=== PATIENT | female | born 1960 | race Caucasian/White ===

== ENCOUNTER → 2016-04-11 | Outpatient (CLI) | payer OTHER ==
[~2016-04-11] MED LIST: ASCO25TA PO; CHLO25TA PO; LEVO100T5 PO; LORA10TA2 PO; LOSA50TA20 PO; SUPE1TAB PO; VITA200015 PO; [UNRECOGNIZED DRUG - CODE] PO; albuterol inh INH
--- NOTE | 2016-04-11 17:30 | REP ---
LUMBAR SPINE, FIVE VIEWS: HISTORY: Left sciatica. There is no acute fracture or subluxation. The L3-4 through L5-S1 intervertebral discs are decreased in height consistent with disc degeneration. Osteophytes are present on L3 and L4. There is narrowing of the L4-5 and L5-S1 facet joints. IMPRESSION: Degenerative change as described above. Signed by Beni Vergara MD 04/12/2016 08:28 A
== END ==
LOC: M LRY 14:37
PROVIDERS: ATTEND Physician Assistant
DX: M51.36 Other intervertebral disc degeneration, lumbar region (principal); M51.37 Other intervertebral disc degeneration, lumbosacral region; M25.78 Osteophyte, vertebrae

== ENCOUNTER → 2016-04-19 | Outpatient (CLI) | payer OTHER ==
--- NOTE | 2016-04-19 15:45 | REP ---
LUMBAR SPINE, FIVE VIEWS: HISTORY: Lumbago. COMPARISON: 04/11/2016 There is no acute fracture or subluxation. The L3-4 through L5-S1 intervertebral discs are decreased in height consistent with disc degeneration. Osteophytes are present on L3 and L4. There is narrowing of the L4-5 and L5-S1 facet joints. IMPRESSION: Degenerative change as described above. Signed by Beni Vergara MD 04/19/2016 04:05 P
== END ==
LOC: M RAD 14:45
PROVIDERS: ATTEND Physician Assistant
DX: M54.42 Lumbago with sciatica, left side (principal); M51.36 Other intervertebral disc degeneration, lumbar region; M51.37 Other intervertebral disc degeneration, lumbosacral region

== ENCOUNTER → 2016-04-27 | Outpatient (CLI) | payer OTHER ==
--- NOTE | 2016-04-27 19:17 | REP ---
MRI LUMBAR SPINE WITHOUT CONTRAST: HISTORY: Back pain. Decreased signal intensity on T2-weighted images is present in the L3-4 and L4-5 intervertebral discs. The discs are decreased in height. These findings are consistent with disc degeneration. There is no disc bulge or herniation at the L1-2, L2-3 and L5-S1 levels. There is hypertrophy of the posterior articulating facets. The nerves exit the neural foramina without compression. A diffuse disc bulge is present at the L3-4 level. There is hypertrophy of the ligamenta flava and posterior articulating facets. These findings produce minimal central canal stenosis. The L3 nerves exit the neural foramina without compression. A diffuse disc bulge is present at the L4-5 level. There is hypertrophy of the ligamenta flava and posterior articulating facets. These findings produce mild central canal stenosis. The L4 nerves exit the neural foramina without compression. The conus medullaris is normal in appearance terminating at the level of the T12-L1 intervertebral disc. Normal signal intensity is present in the lumbar vertebral bodies. IMPRESSION: 1. Minimal central canal stenosis at the L4-5 level secondary to disc bulge, ligamentous and facet hypertrophy. 2. Mild central canal stenosis at the L4-5 level secondary to disc bulge, ligamentous and facet hypertrophy. Signed by Beni Vergara MD 04/27/2016 07:19 P
== END ==
LOC: M RAD 16:54
DX: M99.53 Intervertebral disc stenosis of neural canal of lumbar region (principal); M89.38 Hypertrophy of bone, other site; M24.28 Disorder of ligament, vertebrae; M17.12 Unilateral primary osteoarthritis, left knee

== ENCOUNTER → 2016-05-02 | Outpatient (CLI) | payer OTHER ==
--- NOTE | 2016-05-03 02:17 | REP ---
Clinical: Pain. Technique: AP, lateral, bilateral oblique and sunrise views of the left knee. Findings: Early moderate tricompartmental osteoarthritic degenerative changes include medial and patellar osteophytes along with increased sclerosis to the medial tibial surface with decreased medial and patellofemoral compartment joint space. No acute fracture or dislocation. No definite effusion. Impression: Early moderate tricompartmental degenerative changes suggested. Signed by Atif Santillan MD 05/03/2016 02:08 A
== END ==
LOC: M RAD 10:52
PROVIDERS: ATTEND Hospitalist
DX: M17.12 Unilateral primary osteoarthritis, left knee (principal)

== ENCOUNTER → 2016-05-08 | Outpatient (CLI) | payer OTHER ==
--- NOTE | 2016-05-08 13:59 | REP ---
Left TIB-fib series: Four views. History: Pain in the left leg. Swelling. Findings: Four views left tibia and fibula show no evidence of fracture or subluxation. There is an edema pattern in the subcutaneous fat layer. Soft tissues are otherwise unremarkable. Impression: Subcutaneous edema pattern. No bony abnormality. Signed by Ricardo Ashby MD 05/08/2016 02:35 P
== END ==
LOC: M RAD 13:05
PROVIDERS: ATTEND Hospitalist
DX: R60.0 Localized edema (principal)

== ENCOUNTER → 2016-06-02 | Outpatient (REF) | payer OTHER | LOC: M SFHCPLAZ 15:31 | DX: Z53.8 Procedure and treatment not carried out for other reasons (principal) ==

== ENCOUNTER → 2016-06-08 | Outpatient (CLI) | payer OTHER | LOC: M LAB 07:01 | PROVIDERS: ATTEND Internal Medicine | DX: M79.605 Pain in left leg (principal) ==

== ENCOUNTER 2016-06-15 14:30 | Outpatient (RCR) | payer OTHER | END 2016-06-30 | LOC: M PT 14:30 | PROVIDERS: ATTEND Hospitalist | DX: Z51.89 Encounter for other specified aftercare (principal); M25.562 Pain in left knee; M54.5 Low back pain ==

== ENCOUNTER → 2016-07-12 | Outpatient (CLI) | payer OTHER ==
[2016-07-12 10:08] LABS: ANION GAP 10 MEQ/L (8-16); BLOOD UREA NITROGEN 16 MG/DL (7-18); CALCIUM LEVEL 8.9 MG/DL (8.5-10.1); CARBON DIOXIDE LEVEL 29 MEQ/L (21-32); CHLORIDE LEVEL 102 MEQ/L (98-107); CREATININE FOR GFR 0.76 MG/DL (0.55-1.02); GLOMERULAR FILTRATION RATE > 60.0 (>51); GLUCOSE, FASTING 105 MG/DL (70-105); POTASSIUM SERUM 4.1 MEQ/L (3.5-5.1); SODIUM LEVEL 141 MEQ/L (136-145)
== END ==
LOC: M LAB 08:19
PROVIDERS: ATTEND Neuromusculoskeletal Medicine & OMM
DX: I10 Essential (primary) hypertension (principal); E03.9 Hypothyroidism, unspecified

== ENCOUNTER → 2016-07-12 | Outpatient (CLI) | payer OTHER ==
[2016-07-12 07:47] LABS: BASO % 0.5 % (0.0-1.0); EOS # 0.1 K/mm3 (0.0-0.50); EOS % 2.8 % (0.0-3.0); LARGE UNSTAINED CELL # 0.1 K/mm3 (0.0-0.4); LARGE UNSTAINED CELL % 1.7 % (0.0-4.0); LYMPH # 1.6 K/mm3 (1.5-4.5); LYMPH % 33.8 % (24.0-44.0); MEAN CORPUSCULAR HGB CONC 33.3 g/dl (32.0-36.5); MEAN CORPUSCULAR VOLUME 93.3 fl (80.0-96.0); MONO # 0.3 K/mm3 (0.0-0.8); MONO % 5.9 % (0.0-5.0); NEUTROPHILS # 2.5 K/mm3 (1.8-7.7); NEUTROPHILS % 55.3 % (36.0-66.0); PLATELET COUNT, AUTOMATED 205 k/mm3 (150-450); RED CELL DISTRIBUTION WIDTH 12.7 % (11.5-14.5); WHITE BLOOD COUNT 4.5 K/mm3 (4.0-10.0)
[2016-07-12 08:53] LABS: ERYTHROCYTE SEDIMENTATION RATE 14 mm/hr (0-30)
== END ==
LOC: M LAB 06:53
PROVIDERS: ATTEND Physician Assistant
DX: M17.0 Bilateral primary osteoarthritis of knee (principal)

== ENCOUNTER → 2016-09-07 | Outpatient (REF) | payer OTHER | LOC: M SFHCWAGY 15:36 | PROVIDERS: ATTEND Nurse Practitioner Family | DX: Z01.419 Encounter for gynecological examination (general) (routine) without abnormal findings (principal); R85.612 Low grade squamous intraepithelial lesion on cytologic smear of anus (LGSIL); Z11.51 Encounter for screening for human papillomavirus (HPV) ==

== ENCOUNTER → 2016-09-07 | Outpatient (CLI) | payer OTHER ==
--- NOTE | 2016-09-07 16:15 | REPMRS ---
Patient History The patient states she had a clinical breast exam in 08/2016. Patient is postmenopausal. No known family history of cancer. Digital Woman Screen Mammo: September 07, 2016 - Exam #: [id number] Bilateral CC and MLO view(s) were taken. Technologist: Shagufta Melendez Technologist Prior study comparison: September 07, 2015, digital woman screen mammo performed at [facility]. September 28, 2014, digital woman screen mammo performed at [facility]. August 13, 2013, digital woman screen mammo performed at [facility]. FINDINGS: The breast tissue is almost entirely fat. There has been no change in the appearance of the mammogram from the prior studies. There is no interval development of dominant mass, architectural distortion, or clustered microcalcification typical of malignancy. ASSESSMENT: BI-RADS/ACR category 1 mammogram. Negative. Recommendation Routine screening mammogram of both breasts in 1 year (for women over age 40). This mammogram was interpreted with the aid of an FDA-approved computer-aided dectection system. Electronically Signed By: Fabián Ashby MD 09/07/16 [id number]
== END ==
LOC: M WHC 15:09
PROVIDERS: ATTEND Nurse Practitioner Family
DX: Z12.31 Encounter for screening mammogram for malignant neoplasm of breast (principal); Z78.0 Asymptomatic menopausal state; E65 Localized adiposity

== ENCOUNTER → 2016-09-15 | Outpatient (CLI) | payer OTHER ==
--- NOTE | 2016-09-15 17:44 | REP ---
PELVIC ULTRASOUND: Real-time sonographic evaluation of the pelvis is performed utilizing transabdominal and endovaginal technique. The bladder measures 6.0 x 8.0 x 8.1 cm. The uterus measures 9.4 x 4.5 x 6.0 cm. The endometrium is diffusely heterogeneous with tiny scattered cystic areas. Thickness is 24 mm. This is markedly thickened. There is no endometrial fluid collection. Ovaries could not be visualized. I see no evidence of adnexal mass or free fluid. IMPRESSION: Markedly thickened heterogeneous endometrium, could indicate endometrial hyperplasia or neoplasm. Recommend endometrial sampling. No evidence of adnexal mass or free fluid.
== END ==
LOC: M WHC 12:49
PROVIDERS: ATTEND Nurse Practitioner Family
DX: N94.89 Other specified conditions associated with female genital organs and menstrual cycle (principal)

== ENCOUNTER → 2016-11-02 | Outpatient (REF) | payer OTHER ==
[~2016-11-02] MED LIST changes: +DOXY-278 PO; +ELIQ5TAB PO; +GABA-279 PO; +MAGN400C2 PO; +POTA20PW PO; +SPIR50TA2 PO
== END ==
LOC: M SFHCPLAZ 14:27
DX: Z11.59 Encounter for screening for other viral diseases (principal)

== ENCOUNTER 2016-12-22 08:48 | Day surgery (SDC) | payer OTHER ==
[~2016-12-22] VITALS: Ht 165.1 cm; Wt 117.9 kg
[~2016-12-22 08:48] MED LIST changes: -DOXY-278 PO
[2016-12-22] MEDS ORDERED: LIDOCAINE 1% MDV 20ML VIAL SQ ONE (09:15)
[2016-12-22] MEDS ORDERED: LR 1,000 ML IV ONE (09:15)
[2016-12-22 09:26] LABS: MEAN CORPUSCULAR HEMOGLOBIN 31.5 pg (27.0-33.0); MEAN CORPUSCULAR HGB CONC 34.2 g/dl (32.0-36.5); MEAN CORPUSCULAR VOLUME 92.2 fl (80.0-96.0); RED CELL DISTRIBUTION WIDTH 12.7 % (11.5-14.5); WHITE BLOOD COUNT 5.2 K/mm3 (4.0-10.0)
[2016-12-22] MEDS ORDERED: DOXY-278 PO (10:36)
[2016-12-22] MEDS ORDERED: MIDAZOLAM INJ 2 MG/2 ML VIAL (J2250) As Ordered ONE (11:03)
[2016-12-22] MEDS ORDERED: PROPOFOL 200 MG/20 ML VIAL As Ordered ONE (11:03)
[2016-12-22] MEDS ORDERED: LIDOCAINE 2% INJ 100 MG/5 ML SDV (FOR ANES.) As Ordered ONE (11:03)
[2016-12-22] MEDS ORDERED: ONDANSETRON 4MG/2ML VIAL (J2405) As Ordered ONE (11:03)
[2016-12-22] MEDS ORDERED: fentaNYL 100 MCG/2 ML INJECTION (J3010) As Ordered ONE ×2 (11:03→12:04)
[2016-12-22] MEDS: fentaNYL 100 MCG/2 ML INJECTION (J3010) IV PRN ×4 (12:05→12:23)
[2016-12-22] MEDS ORDERED: PERCOCET 5MG/325MG TAB As Ordered ONE (12:18)
--- NOTE | 2016-12-22 12:35 | RO ---
DATE OF PROCEDURE: 12/22/2016 PREOPERATIVE DIAGNOSES: 1. Postmenopausal bleeding. 2. Thickened endometrium. POSTOPERATIVE DIAGNOSES: 1. Postmenopausal bleeding. 2. Thickened endometrium. PROCEDURE PERFORMED: Hysteroscopy, dilatation and curettage with MyoSure. SURGEON: Cammie Edmondson MD TRAIN GATE ATTENDANT: Bartolo Rowe, [facility] III ANESTHESIA: General via laryngeal mask airway. SPECIMENS: Endometrial sampling and endometrial curettings. OPERATIVE FINDINGS: Patient with the uterus sounded to 9 cm. Thickened endometrium. On hysteroscopy, bilateral ostia were visualized. ESTIMATED BLOOD LOSS: 10 mL. INTRAVENOUS FLUIDS: 500 mL. DESCRIPTION OF OPERATION: After informed consent was obtained and written consent was reviewed, the patient was brought to the operating room where laryngeal mask airway anesthesia was obtained. She was then placed in lithotomy position, was prepped and draped in a normal sterile fashion. A time out in the operating room was then performed identifying the patient, procedure to be performed as well as drug allergies. A bivalve speculum was then placed revealing the cervix. The anterior lip of the cervix was grasped with a single tooth tenaculum. The cervix was then sequentially dilated using Hanks dilators. The hysteroscope was then advanced through the cervical os and the endometrium was surveyed with the above noted findings. Next, the MyoSure device was then advanced through the hysteroscope and several thickened areas in the endometrium were directly sampled using the MyoSure device. The hysteroscope was then removed. A sharp curette was then advanced through the cervical os and the uterus was curetted in a 360 degree fashion. Specimen was obtained, collected and sent to pathology for further evaluation. The single tooth tenaculum was then removed. Tenaculum sites were noted to be hemostatic. The speculum was then removed. The patient was then taken out of lithotomy position, was awakened from general anesthesia and taken to recovery in stable condition. Counts were correct. MTDD
[2016-12-22] MEDS ORDERED: LR 1,000 ML IV SCH (12:45)
[2016-12-22] MEDS ORDERED: ONDANSETRON 4MG/2ML VIAL (J2405) IV PRN (12:45)
[2016-12-22] MEDS ORDERED: PERCOCET 5MG/325MG TAB PO PRN ×2 (12:45)
[2016-12-22 13:20] VITALS: BP 131/68
== END 2016-12-22 13:26 | disposition home or self-care (01) ==
LOC: M SDC 08:48
PROVIDERS: ATTEND Obstetrics & Gynecology
DX: N95.0 Postmenopausal bleeding (principal); R93.8 Abnormal findings on diagnostic imaging of other specified body structures; E03.9 Hypothyroidism, unspecified; I10 Essential (primary) hypertension; I48.0 Paroxysmal atrial fibrillation; L71.9 Rosacea, unspecified; M17.0 Bilateral primary osteoarthritis of knee; M16.0 Bilateral primary osteoarthritis of hip; J45.909 Unspecified asthma, uncomplicated; G47.33 Obstructive sleep apnea (adult) (pediatric); E66.01 Morbid (severe) obesity due to excess calories; Z88.0 Allergy status to penicillin; Z88.1 Allergy status to other antibiotic agents; Z88.6 Allergy status to analgesic agent; Z88.8 Allergy status to other drugs, medicaments and biological substances; Z91.040 Latex allergy status; Z79.899 Other long term (current) drug therapy; Z98.51 Tubal ligation status

== ENCOUNTER → 2017-04-20 | Outpatient (CLI) | payer OTHER ==
[2017-04-20 18:12] LABS: BASO % 0.7 % (0.0-1.0); EOS # 0.4 10^3/uL (0.0-0.50); EOS % 6.1 % (0.0-3.0); HEMATOCRIT 44.9 % (36.0-47.0); HEMOGLOBIN 14.8 g/dl (12.0-16.0); IMMATURE GRANULOCYTE % 0.3 % (0-0); LYMPH % 32.6 % (24.0-44.0); MEAN CORPUSCULAR HEMOGLOBIN 30.1 pg (27.0-33.0); MEAN CORPUSCULAR VOLUME 91.4 fl (80.0-96.0); MONO # 0.6 10^3/uL (0.0-0.8); MONO % 9.1 % (0.0-5.0); NEUTROPHILS # 3.1 10^3/uL (1.8-7.7); NEUTROPHILS % 51.2 % (36.0-66.0); PLATELET COUNT, AUTOMATED 259 10^3/uL (150-450); RED BLOOD COUNT 4.91 10^6/uL (4.00-5.40); RED CELL DISTRIBUTION WIDTH 12.5 % (11.5-14.5)
== END ==
LOC: M LAB 17:38
DX: M43.6 Torticollis (principal)
CPT/HCPCS: 85025

== ENCOUNTER → 2017-05-24 | Outpatient (CLI) | payer OTHER ==
[2017-05-24 14:47] LABS: ANION GAP 6 MEQ/L (8-16); BLOOD UREA NITROGEN 16 MG/DL (7-18); CALCIUM LEVEL 8.8 MG/DL (8.5-10.1); CARBON DIOXIDE LEVEL 33 MEQ/L (21-32); CHLORIDE LEVEL 101 MEQ/L (98-107); CREATININE FOR GFR 0.79 MG/DL (0.55-1.30); GLOMERULAR FILTRATION RATE > 60.0 (>51); GLUCOSE, FASTING 104 MG/DL (70-100); POTASSIUM SERUM 3.8 MEQ/L (3.5-5.1); SODIUM LEVEL 140 MEQ/L (136-145)
== END ==
LOC: M LAB 13:39
DX: I10 Essential (primary) hypertension (principal); E03.9 Hypothyroidism, unspecified
CPT/HCPCS: 84443

== ENCOUNTER → 2017-09-14 | Outpatient (REF) | payer OTHER ==
[2017-09-18 14:16] LABS: HPV HYBRID CAPTURE II Negative (Negative)
== END ==
LOC: M LAB REF 18:09
DX: Z12.4 Encounter for screening for malignant neoplasm of cervix (principal)

== ENCOUNTER 2017-10-07 22:14 | Emergency (ER) | payer OTHER ==
[2017-10-08] MEDS: AZITHROMYCIN 250 MG TAB PO (00:37)
== END 2017-10-08 00:41 | disposition home or self-care (01) ==
LOC: M ED 22:14
DX: H66.93 Otitis media, unspecified, bilateral (principal); R05 Cough; I10 Essential (primary) hypertension; J45.909 Unspecified asthma, uncomplicated; E03.9 Hypothyroidism, unspecified; Z87.891 Personal history of nicotine dependence; Z79.899 Other long term (current) drug therapy; Z88.0 Allergy status to penicillin; Z88.6 Allergy status to analgesic agent; Z88.8 Allergy status to other drugs, medicaments and biological substances; Z91.040 Latex allergy status
CPT/HCPCS: 71046

== ENCOUNTER → 2017-12-07 | Outpatient (CLI) | payer OTHER ==
[2017-12-07 18:46] LABS: ANION GAP 10 MEQ/L (8-16); BLOOD UREA NITROGEN 12 MG/DL (7-18); CARBON DIOXIDE LEVEL 29 MEQ/L (21-32); CHLORIDE LEVEL 99 MEQ/L (98-107); CREATININE FOR GFR 0.83 MG/DL (0.55-1.30); GLOMERULAR FILTRATION RATE > 60.0 (>51); GLUCOSE, FASTING 79 MG/DL (70-100); POTASSIUM SERUM 3.4 MEQ/L (3.5-5.1); SODIUM LEVEL 138 MEQ/L (136-145)
== END ==
LOC: M LAB 16:44
DX: I10 Essential (primary) hypertension (principal)
CPT/HCPCS: 80048

== ENCOUNTER 2017-12-18 11:13 | Inpatient (IN) | payer OTHER ==
[2017-12-18 12:08] LABS: BASO % 0.2 % (0.0-1.0); EOS # 0.1 10^3/uL (0.0-0.50); EOS % 1.2 % (0.0-3.0); HEMATOCRIT 45.7 % (36.0-47.0); IMMATURE GRANULOCYTE % 0.4 % (0-3.0); LYMPH # 1.9 10^3/uL (1.5-4.5); LYMPH % 18.3 % (24.0-44.0); MEAN CORPUSCULAR HEMOGLOBIN 30.3 pg (27.0-33.0); MEAN CORPUSCULAR HGB CONC 32.8 g/dl (32.0-36.5); MEAN CORPUSCULAR VOLUME 92.3 fl (80.0-96.0); MONO # 0.7 10^3/uL (0.0-0.8); MONO % 6.2 % (0.0-5.0); NEUTROPHILS # 7.7 10^3/uL (1.8-7.7); NEUTROPHILS % 73.7 % (36.0-66.0); PLATELET COUNT, AUTOMATED 243 10^3/uL (150-450); RED BLOOD COUNT 4.95 10^6/uL (4.00-5.40); RED CELL DISTRIBUTION WIDTH 13.2 % (11.5-14.5); WHITE BLOOD COUNT 10.5 10^3/uL (4.0-10.0)
[2017-12-18] MEDS: dexameTHASONE 20 MG/5 ML VIAL (J1100) IV (12:18)
[2017-12-18] MEDS: IPRATROPIUM 0.5MG/ALBUTEROL 2.5MG INH SOL UD 3ML (DUONEB)(J7620) NEB ×5 (12:28→22:56)
[2017-12-18 12:33] LABS: ANION GAP 8 MEQ/L (8-16); BLOOD UREA NITROGEN 11 MG/DL (7-18); CALCIUM LEVEL 9.6 MG/DL (8.5-10.1); CARBON DIOXIDE LEVEL 31 MEQ/L (21-32); CHLORIDE LEVEL 97 MEQ/L (98-107); CREATININE FOR GFR 0.73 MG/DL (0.55-1.30); GLOMERULAR FILTRATION RATE > 60.0 (>51); GLUCOSE, FASTING 90 MG/DL (70-100); POTASSIUM SERUM 3.8 MEQ/L (3.5-5.1); SODIUM LEVEL 136 MEQ/L (136-145)
[2017-12-18] MEDS: ONDANSETRON 4MG/2ML VIAL (J2405) IV (14:49)
[2017-12-18 16:58] LABS: CK-MB VALUE MASS < 1.0 NG/ML (<3.6); CPK CREATINE PHOSPHOKINASE 91 U/L (26-192); TROPONIN I < 0.02 NG/ML (< 0.10)
[2017-12-18] MEDS: LevoFLOXacin IV 500 MG in APPROPRIATE DILUENT 1 EA IV (17:32)
[2017-12-18] MEDS: APIXABAN 5 MG TAB (ELIQUIS) PO (20:54)
[2017-12-18] MEDS: methylPREDNISolone INJ 125 MG/2 ML VIAL (J2930) IV (20:54)
[2017-12-18] MEDS: GABAPENTIN 100 MG CAP PO (20:54)
[2017-12-18] MEDS: guaiFENesin ER 600 MG TAB PO (20:54)
[2017-12-18] MEDS: POTASSIUM CHLORIDE 10 MEQ SR TABLET PO (22:22)
[2017-12-18 23:41] LABS: CK-MB VALUE MASS < 1.0 NG/ML (<3.6); CPK CREATINE PHOSPHOKINASE 89 U/L (26-192); MB/CK RELATIVE INDEX 1.12 (< OR =4); TROPONIN I < 0.02 NG/ML (< 0.10)
[2017-12-19] MEDS: ALBUTEROL SULFATE 2.5 MG/0.5 ML INH NEB SOLN INH (02:12)
[2017-12-19] MEDS: IPRATROPIUM 0.5MG/ALBUTEROL 2.5MG INH SOL UD 3ML (DUONEB)(J7620) NEB ×4 (03:31→20:27)
[2017-12-19] MEDS: methylPREDNISolone INJ 125 MG/2 ML VIAL (J2930) IV ×2 (04:05→12:42)
[2017-12-19] MEDS: LEVOTHYROXINE 100MCG TABLET (0.1MG) PO (06:07)
[2017-12-19] MEDS: guaiFENesin ER 600 MG TAB PO ×2 (07:48→20:07)
[2017-12-19] MEDS: APIXABAN 5 MG TAB (ELIQUIS) PO ×2 (07:48→20:07)
[2017-12-19] MEDS: SPIRONOLACTONE 50 MG TAB PO (07:48)
[2017-12-19] MEDS: GABAPENTIN 100 MG CAP PO ×2 (07:48→20:07)
[2017-12-19] MEDS: CHLORTHALIDONE 25 MG TAB PO (07:49)
[2017-12-19] MEDS: LORATADINE 10 MG TAB PO (07:49)
[2017-12-19 08:11] LABS: BASO % 0.1 % (0.0-1.0); HEMATOCRIT 41.7 % (36.0-47.0); IMMATURE GRANULOCYTE % 0.4 % (0-3.0); LYMPH # 1.4 10^3/uL (1.5-4.5); LYMPH % 10.4 % (24.0-44.0); MEAN CORPUSCULAR HEMOGLOBIN 30.2 pg (27.0-33.0); MEAN CORPUSCULAR HGB CONC 33.6 g/dl (32.0-36.5); MEAN CORPUSCULAR VOLUME 89.9 fl (80.0-96.0); MONO # 0.2 10^3/uL (0.0-0.8); MONO % 1.4 % (0.0-5.0); NEUTROPHILS # 12.2 10^3/uL (1.8-7.7); NEUTROPHILS % 87.7 % (36.0-66.0); PLATELET COUNT, AUTOMATED 238 10^3/uL (150-450); RED BLOOD COUNT 4.64 10^6/uL (4.00-5.40); RED CELL DISTRIBUTION WIDTH 13.3 % (11.5-14.5); WHITE BLOOD COUNT 13.9 10^3/uL (4.0-10.0)
[2017-12-19 08:58] LABS: ANION GAP 14 MEQ/L (8-16); BLOOD UREA NITROGEN 18 MG/DL (7-18); CALCIUM LEVEL 9.3 MG/DL (8.5-10.1); CARBON DIOXIDE LEVEL 23 MEQ/L (21-32); CHLORIDE LEVEL 98 MEQ/L (98-107); CPK CREATINE PHOSPHOKINASE 119 U/L (26-192); CREATININE FOR GFR 1.13 MG/DL (0.55-1.30); GLOMERULAR FILTRATION RATE 52.5 (>51); GLUCOSE, FASTING 207 MG/DL (70-100); MB/CK RELATIVE INDEX 1.09 (< OR =4); POTASSIUM SERUM 3.8 MEQ/L (3.5-5.1); SODIUM LEVEL 135 MEQ/L (136-145); TROPONIN I < 0.02 NG/ML (< 0.10)
[2017-12-19] MEDS: ACETAMINOPHEN TAB 650MG DOSE (2X325MG) PO (10:58)
[2017-12-19] MEDS: ONDANSETRON 4 MG TAB (S0181) PO ×2 (13:22→22:39)
[2017-12-19] MEDS: SLF 3 ML SYR IV ×2 (13:27→20:07)
[2017-12-19] MEDS: LevoFLOXacin IV 500 MG in APPROPRIATE DILUENT 1 EA IV (16:06)
[2017-12-19] MEDS: methylPREDNISolone INJ 40 MG/1 ML VIAL (J2920) IV (20:06)
[2017-12-19] MEDS: POTASSIUM CHLORIDE 10 MEQ SR TABLET PO (20:07)
[2017-12-20] MEDS: IPRATROPIUM 0.5MG/ALBUTEROL 2.5MG INH SOL UD 3ML (DUONEB)(J7620) NEB ×6 (04:00→20:00)
[2017-12-20] MEDS: methylPREDNISolone INJ 40 MG/1 ML VIAL (J2920) IV ×3 (04:09→21:06)
[2017-12-20] MEDS: LEVOTHYROXINE 100MCG TABLET (0.1MG) PO (06:00)
[2017-12-20] MEDS: SLF 3 ML SYR IV ×4 (06:01→21:08)
[2017-12-20 06:08] LABS: BASO % 0.1 % (0.0-1.0); HEMATOCRIT 40.6 % (36.0-47.0); HEMOGLOBIN 13.7 g/dl (12.0-15.5); IMMATURE GRANULOCYTE % 0.7 % (0-3.0); LYMPH # 1.5 10^3/uL (1.5-4.5); LYMPH % 7.1 % (24.0-44.0); MEAN CORPUSCULAR HEMOGLOBIN 30.4 pg (27.0-33.0); MEAN CORPUSCULAR HGB CONC 33.7 g/dl (32.0-36.5); MONO # 0.6 10^3/uL (0.0-0.8); MONO % 3.1 % (0.0-5.0); NEUTROPHILS # 18.3 10^3/uL (1.8-7.7); PLATELET COUNT, AUTOMATED 270 10^3/uL (150-450); RED BLOOD COUNT 4.51 10^6/uL (4.00-5.40); RED CELL DISTRIBUTION WIDTH 13.5 % (11.5-14.5); WHITE BLOOD COUNT 20.5 10^3/uL (4.0-10.0)
[2017-12-20 06:21] LABS: ANION GAP 10 MEQ/L (8-16); BLOOD UREA NITROGEN 23 MG/DL (7-18); CALCIUM LEVEL 9.3 MG/DL (8.5-10.1); CARBON DIOXIDE LEVEL 25 MEQ/L (21-32); CHLORIDE LEVEL 102 MEQ/L (98-107); CREATININE FOR GFR 0.94 MG/DL (0.55-1.30); GLOMERULAR FILTRATION RATE > 60.0 (>51); GLUCOSE, FASTING 196 MG/DL (70-100); MAGNESIUM LEVEL 2.3 MG/DL (1.8-2.4); POTASSIUM SERUM 4.7 MEQ/L (3.5-5.1); SODIUM LEVEL 137 MEQ/L (136-145)
[2017-12-20] MEDS: SPIRONOLACTONE 50 MG TAB PO (07:59)
[2017-12-20] MEDS: GABAPENTIN 100 MG CAP PO ×2 (07:59→21:07)
[2017-12-20] MEDS: APIXABAN 5 MG TAB (ELIQUIS) PO ×2 (07:59→21:07)
[2017-12-20] MEDS: LORATADINE 10 MG TAB PO (08:00)
[2017-12-20] MEDS: guaiFENesin ER 600 MG TAB PO ×2 (08:00→21:06)
[2017-12-20] MEDS: CHLORTHALIDONE 25 MG TAB PO (08:00)
[2017-12-20] MEDS: METOPROLOL TART 12.5 MG PER 1/2 TAB PO ×2 (08:45→12:41)
[2017-12-20] MEDS: VITAMIN D 1,000 INTERNATIONAL UNITS TABLET PO (11:54)
[2017-12-20] MEDS: METOPROLOL 5 MG/5 ML VIAL IV ×2 (11:54→18:36)
[2017-12-20] MEDS: FAMOTIDINE 20 MG TAB PO (12:39)
[2017-12-20] MEDS: METOPROLOL TART 25 MG TABLET PO (17:08)
[2017-12-20] MEDS: POTASSIUM CHLORIDE 10 MEQ SR TABLET PO (21:06)
[2017-12-20] MEDS: MAGNESIUM OXIDE 400 MG TAB (MAG-OX) PO (21:08)
[2017-12-21] MEDS: METOPROLOL TART 25 MG TABLET PO ×2 (00:08→05:02)
[2017-12-21] MEDS: IPRATROPIUM 0.5MG/ALBUTEROL 2.5MG INH SOL UD 3ML (DUONEB)(J7620) NEB ×4 (04:00→11:16)
[2017-12-21] MEDS: methylPREDNISolone INJ 40 MG/1 ML VIAL (J2920) IV (04:40)
[2017-12-21] MEDS: LEVOTHYROXINE 100MCG TABLET (0.1MG) PO (05:01)
[2017-12-21] MEDS: FAMOTIDINE 20 MG TAB PO (05:01)
[2017-12-21] MEDS: SLF 3 ML SYR IV ×3 (05:02→22:00)
[2017-12-21 05:56] LABS: BASO % 0.1 % (0.0-1.0); HEMATOCRIT 41.2 % (36.0-47.0); HEMOGLOBIN 13.6 g/dl (12.0-15.5); IMMATURE GRANULOCYTE % 1.3 % (0-3.0); LYMPH # 1.2 10^3/uL (1.5-4.5); LYMPH % 6.9 % (24.0-44.0); MEAN CORPUSCULAR HEMOGLOBIN 30.4 pg (27.0-33.0); MONO # 0.9 10^3/uL (0.0-0.8); MONO % 5.3 % (0.0-5.0); NEUTROPHILS # 14.9 10^3/uL (1.8-7.7); NEUTROPHILS % 86.4 % (36.0-66.0); PLATELET COUNT, AUTOMATED 281 10^3/uL (150-450); RED BLOOD COUNT 4.48 10^6/uL (4.00-5.40); RED CELL DISTRIBUTION WIDTH 13.7 % (11.5-14.5); WHITE BLOOD COUNT 17.3 10^3/uL (4.0-10.0)
[2017-12-21 06:10] LABS: ANION GAP 7 MEQ/L (8-16); BLOOD UREA NITROGEN 22 MG/DL (7-18); CALCIUM LEVEL 8.6 MG/DL (8.5-10.1); CARBON DIOXIDE LEVEL 26 MEQ/L (21-32); CHLORIDE LEVEL 104 MEQ/L (98-107); GLOMERULAR FILTRATION RATE > 60.0 (>51); GLUCOSE, FASTING 183 MG/DL (70-100); MAGNESIUM LEVEL 2.2 MG/DL (1.8-2.4); POTASSIUM SERUM 4.3 MEQ/L (3.5-5.1); SODIUM LEVEL 137 MEQ/L (136-145)
[2017-12-21] MEDS: VITAMIN D 1,000 INTERNATIONAL UNITS TABLET PO (08:37)
[2017-12-21] MEDS: CHLORTHALIDONE 25 MG TAB PO (08:37)
[2017-12-21] MEDS: LORATADINE 10 MG TAB PO (08:37)
[2017-12-21] MEDS: SPIRONOLACTONE 50 MG TAB PO (08:37)
[2017-12-21] MEDS: GABAPENTIN 100 MG CAP PO ×2 (08:37→22:05)
[2017-12-21] MEDS: APIXABAN 5 MG TAB (ELIQUIS) PO ×2 (08:38→22:06)
[2017-12-21] MEDS: guaiFENesin ER 600 MG TAB PO ×2 (08:38→22:04)
[2017-12-21] MEDS: METOPROLOL TART 50 MG TAB PO ×2 (12:17→17:26)
[2017-12-21] MEDS: ACETAMINOPHEN TAB 650MG DOSE (2X325MG) PO (17:24)
[2017-12-21] MEDS: POTASSIUM CHLORIDE 10 MEQ SR TABLET PO (22:05)
[2017-12-21] MEDS: MAGNESIUM OXIDE 400 MG TAB (MAG-OX) PO (22:06)
[2017-12-22] MEDS: METOPROLOL TART 50 MG TAB PO ×3 (00:06→08:41)
[2017-12-22 05:31] LABS: BASO % 0.1 % (0.0-1.0); HEMATOCRIT 43.9 % (36.0-47.0); HEMOGLOBIN 14.6 g/dl (12.0-15.5); IMMATURE GRANULOCYTE % 2.6 % (0-3.0); LYMPH # 3.3 10^3/uL (1.5-4.5); LYMPH % 22.8 % (24.0-44.0); MEAN CORPUSCULAR HEMOGLOBIN 29.9 pg (27.0-33.0); MEAN CORPUSCULAR HGB CONC 33.3 g/dl (32.0-36.5); MONO % 7.2 % (0.0-5.0); NEUTROPHILS # 9.6 10^3/uL (1.8-7.7); NEUTROPHILS % 67.3 % (36.0-66.0); PLATELET COUNT, AUTOMATED 276 10^3/uL (150-450); RED BLOOD COUNT 4.88 10^6/uL (4.00-5.40); RED CELL DISTRIBUTION WIDTH 13.4 % (11.5-14.5); WHITE BLOOD COUNT 14.2 10^3/uL (4.0-10.0)
[2017-12-22 05:58] LABS: ANION GAP 8 MEQ/L (8-16); BLOOD UREA NITROGEN 25 MG/DL (7-18); CALCIUM LEVEL 8.7 MG/DL (8.5-10.1); CARBON DIOXIDE LEVEL 29 MEQ/L (21-32); CHLORIDE LEVEL 104 MEQ/L (98-107); CREATININE FOR GFR 0.77 MG/DL (0.55-1.30); GLOMERULAR FILTRATION RATE > 60.0 (>51); GLUCOSE, FASTING 94 MG/DL (70-100); MAGNESIUM LEVEL 2.4 MG/DL (1.8-2.4); POTASSIUM SERUM 3.9 MEQ/L (3.5-5.1); SODIUM LEVEL 141 MEQ/L (136-145)
[2017-12-22] MEDS: LEVOTHYROXINE 100MCG TABLET (0.1MG) PO (06:26)
[2017-12-22] MEDS: SLF 3 ML SYR IV ×3 (06:27→20:40)
[2017-12-22] MEDS: LEVALBUTEROL 1.25 MG/0.5 ML CONCENTRATE NEB INH ×2 (07:22→18:15)
[2017-12-22] MEDS: VITAMIN D 1,000 INTERNATIONAL UNITS TABLET PO (08:40)
[2017-12-22] MEDS: CHLORTHALIDONE 25 MG TAB PO (08:40)
[2017-12-22] MEDS: guaiFENesin ER 600 MG TAB PO ×2 (08:40→20:40)
[2017-12-22] MEDS: APIXABAN 5 MG TAB (ELIQUIS) PO ×2 (08:40→20:39)
[2017-12-22] MEDS: predniSONE 20 MG TAB PO (08:40)
[2017-12-22] MEDS: GABAPENTIN 100 MG CAP PO ×2 (08:41→20:39)
[2017-12-22] MEDS: LORATADINE 10 MG TAB PO (08:41)
[2017-12-22] MEDS: SPIRONOLACTONE 50 MG TAB PO (08:41)
[2017-12-22] MEDS: METOPROLOL 5 MG/5 ML VIAL IV (18:54)
[2017-12-22] MEDS: DIGOXIN INJ 0.5 MG/2 ML AMP (J1160) IV (20:38)
[2017-12-22] MEDS: METOPROLOL TARTRATE 100 MG TAB PO (20:39)
[2017-12-22] MEDS: POTASSIUM CHLORIDE 10 MEQ SR TABLET PO (20:39)
[2017-12-22] MEDS: MAGNESIUM OXIDE 400 MG TAB (MAG-OX) PO (20:40)
[2017-12-22] MEDS: DIGOXIN 0.25 MG TAB PO (23:55)
[2017-12-23] MEDS: LEVOTHYROXINE 100MCG TABLET (0.1MG) PO (05:32)
[2017-12-23] MEDS: SLF 3 ML SYR IV ×3 (05:33→21:34)
[2017-12-23 05:38] LABS: BASO % 0.1 % (0.0-1.0); EOS % 0.3 % (0.0-3.0); HEMATOCRIT 45.9 % (36.0-47.0); HEMOGLOBIN 15.5 g/dl (12.0-15.5); LYMPH # 3.7 10^3/uL (1.5-4.5); LYMPH % 23.5 % (24.0-44.0); MEAN CORPUSCULAR HEMOGLOBIN 30.4 pg (27.0-33.0); MEAN CORPUSCULAR HGB CONC 33.8 g/dl (32.0-36.5); MONO % 6.1 % (0.0-5.0); NEUTROPHILS # 10.6 10^3/uL (1.8-7.7); PLATELET COUNT, AUTOMATED 294 10^3/uL (150-450); RED CELL DISTRIBUTION WIDTH 13.2 % (11.5-14.5); WHITE BLOOD COUNT 15.8 10^3/uL (4.0-10.0)
[2017-12-23 05:53] LABS: ANION GAP 5 MEQ/L (8-16); BLOOD UREA NITROGEN 22 MG/DL (7-18); CALCIUM LEVEL 8.9 MG/DL (8.5-10.1); CARBON DIOXIDE LEVEL 34 MEQ/L (21-32); CHLORIDE LEVEL 101 MEQ/L (98-107); CREATININE FOR GFR 0.88 MG/DL (0.55-1.30); GLOMERULAR FILTRATION RATE > 60.0 (>51); GLUCOSE, FASTING 92 MG/DL (70-100); MAGNESIUM LEVEL 2.5 MG/DL (1.8-2.4); POTASSIUM SERUM 4.6 MEQ/L (3.5-5.1); SODIUM LEVEL 140 MEQ/L (136-145)
[2017-12-23] MEDS: SPIRONOLACTONE 50 MG TAB PO (08:04)
[2017-12-23] MEDS: CHLORTHALIDONE 25 MG TAB PO (08:04)
[2017-12-23] MEDS: VITAMIN D 1,000 INTERNATIONAL UNITS TABLET PO (08:04)
[2017-12-23] MEDS: METOPROLOL TARTRATE 100 MG TAB PO ×2 (08:04→21:34)
[2017-12-23] MEDS: predniSONE 20 MG TAB PO (08:05)
[2017-12-23] MEDS: APIXABAN 5 MG TAB (ELIQUIS) PO ×2 (08:05→21:33)
[2017-12-23] MEDS: LORATADINE 10 MG TAB PO (08:05)
[2017-12-23] MEDS: guaiFENesin ER 600 MG TAB PO ×2 (08:05→21:33)
[2017-12-23] MEDS: GABAPENTIN 100 MG CAP PO ×2 (08:05→21:33)
[2017-12-23] MEDS: DIGOXIN 0.25 MG TAB PO (09:14)
[2017-12-23] MEDS: FLECAINIDE 50MG TABLET PO (11:40)
[2017-12-23] MEDS: MAGNESIUM OXIDE 400 MG TAB (MAG-OX) PO (21:33)
[2017-12-23] MEDS: POTASSIUM CHLORIDE 10 MEQ SR TABLET PO (21:33)
[2017-12-24 05:39] LABS: BASO # 0.1 10^3/uL (0.0-0.2); BASO % 0.3 % (0.0-1.0); EOS # 0.1 10^3/uL (0.0-0.50); EOS % 0.5 % (0.0-3.0); HEMATOCRIT 46.3 % (36.0-47.0); HEMOGLOBIN 15.3 g/dl (12.0-15.5); IMMATURE GRANULOCYTE % 3.2 % (0-3.0); LYMPH % 22.8 % (24.0-44.0); MEAN CORPUSCULAR HEMOGLOBIN 30.2 pg (27.0-33.0); MEAN CORPUSCULAR VOLUME 91.5 fl (80.0-96.0); MONO # 0.8 10^3/uL (0.0-0.8); MONO % 4.7 % (0.0-5.0); NEUTROPHILS % 68.5 % (36.0-66.0); PLATELET COUNT, AUTOMATED 319 10^3/uL (150-450); RED BLOOD COUNT 5.06 10^6/uL (4.00-5.40); RED CELL DISTRIBUTION WIDTH 13.5 % (11.5-14.5); WHITE BLOOD COUNT 17.6 10^3/uL (4.0-10.0)
[2017-12-24] MEDS: SLF 3 ML SYR IV (05:49)
[2017-12-24] MEDS: LEVOTHYROXINE 100MCG TABLET (0.1MG) PO (05:50)
[2017-12-24] MEDS: LEVALBUTEROL 1.25 MG/0.5 ML CONCENTRATE NEB INH (06:18)
[2017-12-24 06:22] LABS: ANION GAP 7 MEQ/L (8-16); BLOOD UREA NITROGEN 26 MG/DL (7-18); CALCIUM LEVEL 8.5 MG/DL (8.5-10.1); CARBON DIOXIDE LEVEL 32 MEQ/L (21-32); CHLORIDE LEVEL 99 MEQ/L (98-107); CREATININE FOR GFR 0.94 MG/DL (0.55-1.30); GLOMERULAR FILTRATION RATE > 60.0 (>51); GLUCOSE, FASTING 103 MG/DL (70-100); MAGNESIUM LEVEL 2.4 MG/DL (1.8-2.4); POTASSIUM SERUM 3.9 MEQ/L (3.5-5.1); SODIUM LEVEL 138 MEQ/L (136-145)
[2017-12-24] MEDS: GABAPENTIN 100 MG CAP PO (08:35)
[2017-12-24] MEDS: predniSONE 20 MG TAB PO (08:35)
[2017-12-24] MEDS: VITAMIN D 1,000 INTERNATIONAL UNITS TABLET PO (08:35)
[2017-12-24] MEDS: LORATADINE 10 MG TAB PO (08:35)
[2017-12-24] MEDS: APIXABAN 5 MG TAB (ELIQUIS) PO (08:35)
[2017-12-24] MEDS: guaiFENesin ER 600 MG TAB PO (08:35)
[2017-12-24] MEDS: CHLORTHALIDONE 25 MG TAB PO (08:37)
[2017-12-24] MEDS: METOPROLOL TARTRATE 100 MG TAB PO (08:37)
[2017-12-24] MEDS: SPIRONOLACTONE 50 MG TAB PO (08:37)
== END 2017-12-24 12:01 | disposition home or self-care (01) | DRG 141 ==
LOC: M ED 11:13 → M ED INP 15:23 → M PCU 17:01
DX: J45.901 Unspecified asthma with (acute) exacerbation (principal); I48.0 Paroxysmal atrial fibrillation; I10 Essential (primary) hypertension; G47.33 Obstructive sleep apnea (adult) (pediatric); E03.9 Hypothyroidism, unspecified; B97.19 Other enterovirus as the cause of diseases classified elsewhere; Z87.891 Personal history of nicotine dependence; Z90.49 Acquired absence of other specified parts of digestive tract; E66.9 Obesity, unspecified; Z79.01 Long term (current) use of anticoagulants; Z79.899 Other long term (current) drug therapy; Z88.0 Allergy status to penicillin; Z88.6 Allergy status to analgesic agent; Z88.8 Allergy status to other drugs, medicaments and biological substances; Z91.040 Latex allergy status

== ENCOUNTER → 2018-01-18 | Outpatient (CLI) | payer OTHER ==
[~2018-01-18] MED LIST changes: -ASCO25TA PO; -CHLO25TA PO; +E-Z-GAS II EFFERVESCENT PACKET (SODIUM BICARB./CITRIC ACID/SIMETHICONE) As Ordered; +E-Z-HD 98% w/w 340GM SUSP BTL As Ordered; +E-Z-PAQUE 96% w/w SUSP 176GM BTL As Ordered; -ELIQ5TAB PO; -GABA-279 PO; -LEVO100T5 PO; -LORA10TA2 PO; -LOSA50TA20 PO; -MAGN400C2 PO; -POTA20PW PO; -SPIR50TA2 PO; -SUPE1TAB PO; -VITA200015 PO; -[UNRECOGNIZED DRUG - CODE] PO; -albuterol inh INH
== END ==
LOC: M RAD 10:01
DX: R12 Heartburn (principal); K21.9 Gastro-esophageal reflux disease without esophagitis
CPT/HCPCS: 74220

== ENCOUNTER → 2018-01-21 | Outpatient (CLI) | payer OTHER ==
[2018-01-21 09:52] LABS: CORTISOL AM 19.9 UG/DL (4.3-22.4)
[2018-01-24 17:43] LABS: DOPAMINE 258 ug/24 hr (0-510); DOPAMINE TOTAL URINE 136 ug/L (Undefined); EPINEPHRINE 4 ug/24 hr (0-20); EPINEPHRINE TOTAL URINE 2 ug/L (Undefined); NOREPINEPHRINE 55 ug/24 hr (0-135); NOREPINEPHRINE TOTAL URINE 29 ug/L (Undefined)
== END ==
LOC: M LAB 06:41
DX: I48.91 Unspecified atrial fibrillation (principal); I10 Essential (primary) hypertension; D35.00 Benign neoplasm of unspecified adrenal gland
CPT/HCPCS: 82384

== ENCOUNTER 2018-03-01 09:01 | Day surgery (SDC) | payer OTHER ==
[2018-03-01] MEDS: NS 1,000 ML IV (07:30)
[~2018-03-01 09:01] MED LIST changes: -E-Z-GAS II EFFERVESCENT PACKET (SODIUM BICARB./CITRIC ACID/SIMETHICONE) As Ordered; -E-Z-HD 98% w/w 340GM SUSP BTL As Ordered; -E-Z-PAQUE 96% w/w SUSP 176GM BTL As Ordered; +LIDOCAINE 2% INJ 100 MG/5 ML SDV (FOR ANES.) As Ordered; +PROPOFOL 200 MG/20 ML VIAL As Ordered
== END 2018-03-01 12:05 | disposition home or self-care (01) ==
LOC: M OPP 09:01
DX: Z12.11 Encounter for screening for malignant neoplasm of colon (principal); D12.0 Benign neoplasm of cecum; D12.5 Benign neoplasm of sigmoid colon; K57.30 Diverticulosis of large intestine without perforation or abscess without bleeding; K64.9 Unspecified hemorrhoids; R13.10 Dysphagia, unspecified; K21.9 Gastro-esophageal reflux disease without esophagitis; I48.91 Unspecified atrial fibrillation; I10 Essential (primary) hypertension; J45.909 Unspecified asthma, uncomplicated; E03.9 Hypothyroidism, unspecified; R12 Heartburn; R06.83 Snoring; M17.0 Bilateral primary osteoarthritis of knee; M16.10 Unilateral primary osteoarthritis, unspecified hip; Z78.0 Asymptomatic menopausal state; Z87.891 Personal history of nicotine dependence; Z90.49 Acquired absence of other specified parts of digestive tract; Z98.890 Other specified postprocedural states; Z79.899 Other long term (current) drug therapy; Z79.01 Long term (current) use of anticoagulants; Z79.890 Hormone replacement therapy; Z88.0 Allergy status to penicillin; Z88.8 Allergy status to other drugs, medicaments and biological substances; Z91.040 Latex allergy status
CPT/HCPCS: 45385

== ENCOUNTER → 2018-04-25 | Outpatient (CLI) | payer OTHER ==
[~2018-04-25] MED LIST changes: +ACET650S3 PO; +ARNU1INH INH; +ASCO25TA PO; +AZIT-12 PO; +CHLO25TA PO; +DOXY-350 PO; +ELIQ5TAB PO; +GABA-1171 PO; +IPRA6SP NARES; +LEVA12INH INH; +LEVO100T5 PO; -LIDOCAINE 2% INJ 100 MG/5 ML SDV (FOR ANES.) As Ordered; +LORA-243 PO; +LOSA50TA88 PO; +MAGN400C2 PO; +MAGN400C3 PO; +METO1TAB7 PO; +METO50TA7 PO; +MUCI600T31 PO; +OMEP40CA2 PO; +OSEL75CA PO; +POTA20PW PO; +POTA20TA6 PO; +PRED10TA2 PO; -PROPOFOL 200 MG/20 ML VIAL As Ordered; +SPIR50TA4 PO; +STIO1AER IN; +SUPE1TAB PO; +SYNT100T PO; +TYLE325T5 PO; +VENTAER INH; +VITA200015 PO; +ZINC30TA2 PO; +ZINC50TA2 PO; +[UNRECOGNIZED DRUG - CODE] PO; +albuterol inh INH
[2018-04-25 17:25] LABS: HEMATOCRIT 42.1 % (36.0-47.0); HEMOGLOBIN 14.1 g/dl (12.0-15.5); MEAN CORPUSCULAR HEMOGLOBIN 30.3 pg (27.0-33.0); MEAN CORPUSCULAR HGB CONC 33.5 g/dl (32.0-36.5); MEAN CORPUSCULAR VOLUME 90.5 fl (80.0-96.0); PLATELET COUNT, AUTOMATED 273 10^3/uL (150-450); RED BLOOD COUNT 4.65 10^6/uL (4.00-5.40); WHITE BLOOD COUNT 6.8 10^3/uL (4.0-10.0)
[2018-04-25 17:40] LABS: BLOOD UREA NITROGEN 16 MG/DL (7-18); CALCIUM LEVEL 9.4 MG/DL (8.8-10.2); CARBON DIOXIDE LEVEL 32 MEQ/L (21-32); CHLORIDE LEVEL 99 MEQ/L (98-107); CREATININE FOR GFR 0.74 MG/DL (0.55-1.30); GLOMERULAR FILTRATION RATE > 60.0 (>45); GLUCOSE, FASTING 77 MG/DL (70-100); SODIUM LEVEL 138 MEQ/L (136-145)
== END ==
LOC: M LAB 16:22
PROVIDERS: ATTEND Hospitalist
DX: R25.2 Cramp and spasm (principal); E03.9 Hypothyroidism, unspecified

== ENCOUNTER → 2019-01-20 | Outpatient (CLI) | payer OTHER ==
[~2019-01-20] MED LIST changes: -ASCO25TA PO; +CHLO125TA PO; -OMEP40CA2 PO; +OMEP40CA97 PO; +VITA1TAB23 PO
[2019-01-20 14:42] LABS: BLOOD UREA NITROGEN 15 MG/DL (7-18); CALCIUM LEVEL 8.9 MG/DL (8.8-10.2); CARBON DIOXIDE LEVEL 30 MEQ/L (21-32); CHLORIDE LEVEL 102 MEQ/L (98-107); CREATININE FOR GFR 0.86 MG/DL (0.55-1.30); GLOMERULAR FILTRATION RATE > 60.0 (>45); GLUCOSE, FASTING 87 MG/DL (70-100); POTASSIUM SERUM 3.7 MEQ/L (3.5-5.1); SODIUM LEVEL 138 MEQ/L (136-145)
== END ==
LOC: M LAB 13:44
PROVIDERS: ATTEND Hospitalist
DX: E87.6 Hypokalemia (principal)

== ENCOUNTER → 2019-01-22 | Outpatient (CLI) | payer OTHER ==
--- NOTE | 2019-01-22 16:40 | REPMRS ---
Patient History The patient states she has not had a clinical breast exam in over a year. No known family history of cancer. 3D TOMOSYNTHESIS WAS PERFORMED. The [facility] lifetime risk for breast cancer is 5.2%. Digital Woman Screen Mammo: January 22, 2019 - Exam #: [id number] Bilateral CC and MLO view(s) were taken. Technologist: Shagufta Melendez Technologist Prior study comparison: September 07, 2016, digital woman screen mammo performed at [facility]. September 07, 2015, digital woman screen mammo performed at [facility]. FINDINGS: There are scattered fibroglandular densities. There has been no change in the appearance of the mammogram from the prior studies. There is a mild amount of residual fibroglandular tissue which is fairly symmetric. There is no interval development of dominant mass, architectural distortion, or clustered microcalcification suggestive of malignancy. Assessment: BI-RADS/ACR category 1 mammogram. Negative Mammogram. Recommendation Routine screening mammogram in 1 year (for women over age 40). This mammogram was interpreted with the aid of an FDA-approved computer-aided dectection system. Electronically Signed By: Justo Geller MD 01/22/19 [id number]
== END ==
LOC: M WHC 13:48
PROVIDERS: ATTEND Hospitalist
DX: Z12.31 Encounter for screening mammogram for malignant neoplasm of breast (principal)

== ENCOUNTER → 2019-02-16 | Outpatient (REF) | payer OTHER ==
[2019-02-16 19:33] LABS: HEMOGLOBIN A1c 5.7 %
== END ==
LOC: M SFHCPLAZ 14:25
DX: R35.1 Nocturia (principal)

== ENCOUNTER → 2019-03-10 | Outpatient (CLI) | payer OTHER ==
--- NOTE | 2019-03-10 14:37 | REP ---
LEFT ANKLE: Four views. HISTORY: Pain. FINDINGS: Four views of the left ankle demonstrate Achilles and plantar calcaneal spurring. There is diffuse subcutaneous soft tissue edema in the distal calf. Ankle mortise is intact. There is medial malleolar spurring. Midfoot spurring is seen. IMPRESSION: Ankle and midfoot osteoarthritis. Heel spurring. Diffuse soft tissue subcutaneous edema. No acute bony abnormality. Electronically Signed by Ricardo Ashby MD 03/10/2019 05:59 P
--- NOTE | 2019-03-10 14:38 | REP ---
LEFT FOOT: Four views. HISTORY: Pain. FINDINGS: Four views of the left foot demonstrate plantar and Achilles calcaneal spurring. There is mild midfoot osteoarthritic spurring. Overall mineralization pattern is normal. No acute bony abnormality. IMPRESSION: Midfoot osteoarthritic spurring and heel spurring. No acute bony abnormality. Electronically Signed by Ricardo Ashby MD 03/10/2019 06:00 P
== END ==
LOC: M WUC 11:49
PROVIDERS: ATTEND Nurse Practitioner Family
DX: M19.072 Primary osteoarthritis, left ankle and foot (principal); M77.32 Calcaneal spur, left foot; R60.0 Localized edema; M79.672 Pain in left foot

== ENCOUNTER 2019-04-30 12:14 | Emergency (ER) | payer OTHER ==
[~2019-04-30] VITALS: Ht 160 cm; Wt 121.4 kg
[2019-04-30] MEDS ORDERED: FAMO40TA3 PO (13:08)
[2019-04-30] MEDS ORDERED: ARCA75CA INH (13:08)
[2019-04-30] MEDS ORDERED: LIDOCAINE 5% OINT 30 GM TOP STA (13:48)
[2019-04-30] MEDS ORDERED: ACETAMINOPHEN 500 MG TAB PO ONE (14:45)
--- NOTE | 2019-04-30 15:42 | REP ---
CT LUMBAR SPINE: CT lumbar spine performed without IV contrast in the axial plane. Sagittal and coronal reconstruction images are performed. There is no compression fracture or malalignment. There is normal lumbar lordosis. There is no spondylolisthesis. There is no spondylolysis. There is mild diffuse spurring. There is mild disc space narrowing at L4-5. There is partial sacralization of L5. There is mild diffuse disc bulging at L4-5 with very mild spinal stenosis. There is spurring and sclerosis at the posterior facet joints, diffusely. IMPRESSION: Degenerative changes as above. No fracture or dislocation. Electronically Signed by Justo Geller MD 05/01/2019 07:56 P
[2019-04-30] MEDS ORDERED: LIDO1CRE2 TOP (16:02)
[2019-04-30] MEDS ORDERED: BIOF4GEL4 TOP (16:02)
[2019-04-30] MEDS ORDERED: METH1TAB40 PO (16:02)
[2019-04-30 16:24] VITALS: BP 184/77
== END 2019-04-30 16:28 | disposition home or self-care (01) ==
LOC: M ED 12:14
DX: M54.32 Sciatica, left side (principal); I10 Essential (primary) hypertension; J44.9 Chronic obstructive pulmonary disease, unspecified; I48.91 Unspecified atrial fibrillation; E03.9 Hypothyroidism, unspecified; Z79.899 Other long term (current) drug therapy; Z79.890 Hormone replacement therapy; Z79.01 Long term (current) use of anticoagulants; Z88.0 Allergy status to penicillin; Z88.8 Allergy status to other drugs, medicaments and biological substances; Z91.040 Latex allergy status

== ENCOUNTER → 2019-05-13 | Outpatient (CLI) | payer OTHER ==
[~2019-05-13] MED LIST changes: +ARCA75CA INH; +BIOF4GEL4 TOP; +FAMO40TA3 PO; +LIDO1CRE2 TOP; +METH1TAB40 PO
--- NOTE | 2019-05-13 15:54 | REP ---
Clinical: Postmenopausal bleeding. Technique: Transabdominal ultrasound examination followed by transvaginal examination for better evaluation of the endometrium and adnexa. Findings: Bladder is normal and measures a 0.2 x 7.2 x 4.6 cm. Anteverted uterus measures 8.3 x 3.2 x 5.1 cm. Endometrial complex is thickened to 13 mm without discrete uterine or endometrial abnormality identified. Ovaries not visualized. No pelvic fluid. Impression: 1. Thickened endometrial complex. No focal lesion identified.
== END ==
LOC: M WHC 14:52
PROVIDERS: ATTEND Obstetrics & Gynecology
DX: N85.00 Endometrial hyperplasia, unspecified (principal); N95.0 Postmenopausal bleeding

== ENCOUNTER → 2019-07-18 | Outpatient (CLI) | payer OTHER ==
[~2019-07-18] MED LIST changes: -ZINC50TA2 PO; +ZINC50TA34 PO
--- NOTE | 2019-07-18 14:11 | REP ---
MRI THORACIC SPINE: TECHNIQUE: Multiple sequences obtained in the sagittal and axial planes. Thoracic vertebral bodies are normal in height and are well aligned. No compression deformities seen. There is normal thoracic kyphosis. There is no abnormal bone marrow signal. There is diffuse loss of water signal and disc degeneration at all levels. There is mild disc space narrowing at several consecutive mid thoracic disc levels. However, there is no significant disc bulging or herniation at any thoracic disc level. There is no spinal stenosis. There is no evidence of foraminal narrowing. Thoracic cord demonstrates normal signal. IMPRESSION: Diffuse degenerative disc changes as discussed in detail above. No evidence of disc bulging or herniation at any level. No spinal stenosis. No abnormal signal in the thoracic spinal cord. Electronically Signed by Justo Geller MD 07/18/2019 04:51 P
--- NOTE | 2019-07-18 14:18 | REP ---
MRI LUMBAR SPINE: COMPARISON: 04/27/2016 TECHNIQUE: Multiple sequences obtained in the sagittal and axial planes. Vertebral bodies are normal in height and well aligned. There is normal lumbar lordosis. Normal marrow signal is seen in the lumbar vertebral bodies. There is loss of water signal and disc degeneration diffusely. There is very mild disc space narrowing at L4-5. The conus is unremarkable. There is no significant disc bulging or herniation at L1-2, L2-3, or L5-S1 levels with no spinal stenosis. At L3-4, there is minimal diffuse disc bulging. There is mild hypertrophic changes at the posterior facets with hypertrophy of the ligamentum flavum. There is mild effacement of the thecal sac unchanged. There is no foraminal narrowing. At L4-5, there is mild diffuse disc bulging. There is moderate hypertrophic changes of the posterior facets and hypertrophy of the ligamentum flavum. There is mild central canal stenosis at this level unchanged. There is no evidence of significant foraminal narrowing. IMPRESSION: No significant change compared to the prior study of 04/27/2016. Minimal diffuse disc bulging at L3-4 and mild diffuse disc bulging L4-5. Stable mild effacement of the thecal sac L3-4 and mild central canal stenosis at L4-5. Hypertrophic degenerative changes again noted at the facets of L3-4 and L4-5. Electronically Signed by Justo Geller MD 07/18/2019 04:51 P
== END ==
LOC: M RAD 09:55
PROVIDERS: ATTEND Physician Assistant
DX: M51.35 Other intervertebral disc degeneration, thoracolumbar region (principal)

== ENCOUNTER → 2019-07-21 | Outpatient (CLI) | payer OTHER ==
[2019-07-21 17:18] LABS: BLOOD UREA NITROGEN 12 MG/DL (7-18); CREATININE FOR GFR 0.95 MG/DL (0.55-1.30); GLOMERULAR FILTRATION RATE > 60.0 (>45)
== END ==
LOC: M LAB 16:30
PROVIDERS: ATTEND Physician Assistant
DX: M54.16 Radiculopathy, lumbar region (principal)

== ENCOUNTER → 2019-09-08 | Outpatient (CLI) | payer OTHER | LOC: M LAB 11:58 | PROVIDERS: ATTEND Hospitalist | DX: R00.0 Tachycardia, unspecified (principal) ==

== ENCOUNTER → 2019-09-24 | Outpatient (CLI) | payer OTHER ==
[~2019-09-24] MED LIST changes: +ASCO250T20 PO; -VITA1TAB23 PO
== END ==
LOC: M LAB 14:54
PROVIDERS: ATTEND Physical Medicine & Rehabilitation
DX: M51.36 Other intervertebral disc degeneration, lumbar region (principal)

== ENCOUNTER → 2019-12-16 | Outpatient (CLI) | payer OTHER ==
[2019-12-16 13:26] LABS: C REACTIVE PROTEIN QUANTITATIV 0.63 MG/DL (0.00-0.30); RHEUMATOID FACTOR QUANT < 10.0 IU/ML (<15.0)
== END ==
LOC: M LAB 12:12
PROVIDERS: ATTEND Internal Medicine Rheumatology
DX: M25.50 Pain in unspecified joint (principal)

== ENCOUNTER → 2019-12-25 | Outpatient (REF) | payer OTHER | LOC: M SFHCWAGY 12:59 | PROVIDERS: ATTEND Nurse Practitioner Family | DX: Z12.4 Encounter for screening for malignant neoplasm of cervix (principal); N95.2 Postmenopausal atrophic vaginitis ==

== ENCOUNTER → 2020-01-26 | Outpatient (CLI) | payer OTHER ==
--- NOTE | 2020-01-26 15:15 | REPMRS ---
Patient History The patient states she had a clinical breast exam in December 2019.No known family history of cancer. 3D T[facility]YNTHESIS WAS PERFORMED. [facility] for [facility]%. Volpara breast density a. Digital Woman Screen Mammo: January 26, 2020 - Exam #: [id number] Bilateral CC and MLO view(s) were taken. Technologist: Jayla Gupta, Technologist Prior study comparison: January 22, 2019, bilateral digital woman screen mammo performed at [facility]. September 07, 2016, digital woman screen mammo performed at [facility]. FINDINGS: There are scattered fibroglandular densities. There has been no change in the appearance of the mammogram from the prior studies. There is a mild amount of residual fibroglandular tissue which is fairly symmetric. There is no interval development of dominant mass, architectural distortion, or clustered microcalcification suggestive of malignancy. Assessment: BI-RADS/ACR category 1 mammogram. Negative Mammogram. Recommendation Routine screening mammogram in 1 year (for women over age 40). This mammogram was interpreted with the aid of an FDA-approved computer-aided dectection system. Electronically Signed By: Justo Geller MD 01/26/20 [id number]
== END ==
LOC: M WHC 12:47
PROVIDERS: ATTEND Nurse Practitioner Family
DX: Z12.31 Encounter for screening mammogram for malignant neoplasm of breast (principal)

== ENCOUNTER → 2020-02-09 | Outpatient (CLI) | payer OTHER ==
[2020-02-09 14:49] LABS: PLATELET COUNT, AUTOMATED 242 10^3/uL (150-450)
[2020-02-09 15:00] LABS: INR 1.17; PROTHROMBIN TIME 15.2 SECONDS (12.5-14.3)
[2020-02-09 15:01] LABS: PARTIAL THROMBOPLASTIN TIME 34.1 SECONDS (24.2-38.5)
== END ==
LOC: M LAB 14:17
PROVIDERS: ATTEND Physician Assistant
DX: M47.816 Spondylosis without myelopathy or radiculopathy, lumbar region (principal)

== ENCOUNTER → 2020-03-03 | Outpatient (CLI) | payer OTHER | LOC: M LABSMTC 11:37 | PROVIDERS: ATTEND Physical Medicine & Rehabilitation | DX: Z20.818 Contact with and (suspected) exposure to other bacterial communicable diseases (principal) ==

== ENCOUNTER → 2020-08-12 | Outpatient (REF) | payer OTHER ==
[~2020-08-12] MED LIST changes: +METH-1164 PO; -METH1TAB40 PO
== END ==
LOC: M SFHCPLAZ 15:28
DX: Z53.8 Procedure and treatment not carried out for other reasons (principal)

== ENCOUNTER → 2020-08-19 | Outpatient (CLI) | payer OTHER ==
--- NOTE | 2020-08-19 15:59 | REP ---
INDICATION: DD LUMBAR REGION. Low back and bilateral leg pain. COMPARISON: Comparison MRI study is from July 18, 2019.. TECHNIQUE: Sagittal and axial T1 and T2-weighted scans are acquired in the usual fashion with and without fat saturation. Sequences include spin echo, turbo spin-echo, and STIR imaging sequences. FINDINGS: Lumbar vertebral body heights are preserved. Alignment is normal. There is no evidence of spondylolysis or spondylolisthesis. Tip of the conus medullaris is normal in position and appearance at the L1 level unchanged. No extra vertebral abnormality is noted. Axial and sagittal images taken at the L1-2 level show no abnormality. At L2-3, there is mild decreased disc space signal intensity. No disc protrusion, spinal stenosis, or foraminal narrowing is seen. At L3-4, there is degenerative disc space narrowing. Minimal facet and ligamentum flavum hypertrophy is noted. Canal size is borderline at L3-4 unchanged. No focal disc protrusion. At L4-5, there is degenerative disc narrowing and decreased signal intensity. Mild diffuse disc bulging is seen. There is mild central canal stenosis at L4-5 due to disc bulging, ligamentum flavum and facet hypertrophy, and developmentally short pedicles. The midline AP dimension of the thecal sac at L4-5 is 8 mm. The spinal stenosis at L4-5 is felt to be unchanged from the 2019 prior study. No nerve root compression is appreciated. At L5-S1, there is facet hypertrophy bilaterally. No disc protrusion or spinal stenosis is seen. IMPRESSION: Stable degenerative spondylosis changes. Mild central canal stenosis at L4-5 due to disc bulging, ligamentum flavum hypertrophy, and facet hypertrophy. This is unchanged from the July 18, 2019 study. <Electronically signed by Fabián Ashby > 08/19/20 [id number]
== END ==
LOC: M RAD 13:48
PROVIDERS: ATTEND Physical Medicine & Rehabilitation
DX: M51.36 Other intervertebral disc degeneration, lumbar region (principal)

== ENCOUNTER → 2020-09-14 | Outpatient (CLI) | payer OTHER ==
[2020-09-14 09:35] LABS: HEMATOCRIT 45.1 % (36.0-47.0); HEMOGLOBIN 14.4 g/dl (12.0-15.5); MEAN CORPUSCULAR HEMOGLOBIN 30.4 pg (27.0-33.0); MEAN CORPUSCULAR HGB CONC 31.9 g/dl (32.0-36.5); MEAN CORPUSCULAR VOLUME 95.1 fl (80.0-96.0); PLATELET COUNT, AUTOMATED 276 10^3/uL (150-450); RED BLOOD COUNT 4.74 10^6/uL (4.00-5.40); WHITE BLOOD COUNT 6.8 10^3/uL (4.0-10.0)
[2020-09-14 10:10] LABS: ALBUMIN 3.6 GM/DL (3.2-5.2); ALT/SGPT 24 U/L (12-78); BILIRUBIN,TOTAL 0.3 MG/DL (0.2-1.0); BLOOD UREA NITROGEN 9 MG/DL (7-18); CALCIUM LEVEL 9.5 MG/DL (8.8-10.2); CARBON DIOXIDE LEVEL 30 MEQ/L (21-32); CHLORIDE LEVEL 101 MEQ/L (98-107); CREATININE FOR GFR 0.81 MG/DL (0.55-1.30); FREE T4 1.26 NG/DL (0.76-1.46); GLOMERULAR FILTRATION RATE > 60.0 (>45); GLUCOSE, FASTING 98 MG/DL (70-100); SODIUM LEVEL 138 MEQ/L (136-145); TOTAL PROTEIN 7.2 GM/DL (6.4-8.2)
[2020-09-14 10:28] LABS: HEMOGLOBIN A1c 5.9 %
== END ==
LOC: M LAB 08:33
PROVIDERS: ATTEND Hospitalist
DX: Z00.00 Encounter for general adult medical examination without abnormal findings (principal)

== ENCOUNTER → 2020-09-28 | Outpatient (CLI) | payer OTHER ==
[~2020-09-28] MED LIST changes: +OMEP40CA4 PO; -OMEP40CA97 PO
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
== END ==
LOC: M PAIN 13:00
PROVIDERS: ATTEND Nurse Practitioner Family
DX: M79.18 Myalgia, other site (principal); I11.0 Hypertensive heart disease with heart failure; I50.9 Heart failure, unspecified; E66.01 Morbid (severe) obesity due to excess calories; Z68.42 Body mass index [BMI] 45.0-49.9, adult; I48.0 Paroxysmal atrial fibrillation; G47.33 Obstructive sleep apnea (adult) (pediatric); E03.9 Hypothyroidism, unspecified; J45.909 Unspecified asthma, uncomplicated; Z87.891 Personal history of nicotine dependence; Z79.01 Long term (current) use of anticoagulants; Z79.899 Other long term (current) drug therapy; Z88.0 Allergy status to penicillin; Z88.1 Allergy status to other antibiotic agents; Z88.8 Allergy status to other drugs, medicaments and biological substances; Z91.040 Latex allergy status

== ENCOUNTER 2020-10-28 07:54 | Outpatient (RCR) | payer OTHER | END 2020-10-30 | LOC: M PT 07:54 | PROVIDERS: ATTEND Nurse Practitioner Family | DX: M79.10 Myalgia, unspecified site (principal) ==

== ENCOUNTER → 2020-11-01 | Outpatient (CLI) | payer OTHER ==
[~2020-11-01] MED LIST changes: +LOSA50TA28 PO; -LOSA50TA88 PO; +POTA-151 PO; -POTA20TA6 PO
== END ==
LOC: M WHC 13:28
PROVIDERS: ATTEND Student in an Organized Health Care Education/Training Program
DX: Z91.89 Other specified personal risk factors, not elsewhere classified (principal)

== ENCOUNTER → 2020-11-09 | Outpatient (CLI) | payer OTHER ==
[~2020-11-09] MED LIST changes: -LOSA50TA28 PO; +LOSA50TA88 PO; -POTA-151 PO; +POTA20TA6 PO
--- NOTE | 2020-11-09 11:18 | REP ---
INDICATION: RADICULOPATHY, CERVICAL REGION. COMPARISON: None. TECHNIQUE: Routine and flexion/extension lateral views were obtained. FINDINGS: Normal alignment. No instability. Narrowing C3-4, C4-5 C5-6 disc spaces. Uncovertebral/facet arthropathy. C5-6 foraminal encroachment bilaterally. No fracture. IMPRESSION: Multilevel spondylosis and uncovertebral/facet arthropathy. Bilateral foraminal encroachment C5-6 level. Normal alignment. No instability. No fractures. <Electronically signed by Tomasz Rebolledo > 11/09/20 [id number]
== END ==
LOC: M PLAIMG 09:02
PROVIDERS: ATTEND Student in an Organized Health Care Education/Training Program
DX: M43.00 Spondylolysis, site unspecified (principal); M12.9 Arthropathy, unspecified

== ENCOUNTER → 2020-11-16 | Outpatient (CLI) | payer OTHER ==
[2020-11-16 10:51] LABS: BLOOD UREA NITROGEN 11 MG/DL (7-18); CALCIUM LEVEL 9.3 MG/DL (8.8-10.2); CARBON DIOXIDE LEVEL 33 MEQ/L (21-32); CHLORIDE LEVEL 105 MEQ/L (98-107); CHOLESTEROL LEVEL 180 MG/DL (<200); CHOLESTEROL RISK RATIO 3.529 (<5); CREATININE FOR GFR 0.86 MG/DL (0.55-1.30); GLOMERULAR FILTRATION RATE > 60.0 (>45); GLUCOSE, FASTING 98 MG/DL (70-100); HDL CHOLESTEROL 51 MG/DL (>40); LDL CHOLESTEROL 107 MG/DL (<100); NON-HDL-C 129 MG/DL; SODIUM LEVEL 141 MEQ/L (136-145); TRIGLYCERIDES LEVEL 108 MG/DL (<150)
== END ==
LOC: M PLALAB 08:08
PROVIDERS: ATTEND Student in an Organized Health Care Education/Training Program
DX: R73.03 Prediabetes (principal)

== ENCOUNTER 2020-11-18 07:50 | Outpatient (RCR) | payer OTHER | END 2020-11-30 | LOC: M PT 07:50 | PROVIDERS: ATTEND Nurse Practitioner Family | DX: M79.10 Myalgia, unspecified site (principal) ==

== ENCOUNTER → 2020-11-25 | Outpatient (CLI) | payer OTHER ==
--- NOTE | 2020-11-28 23:38 | ECWPNPC ---
PATIENT NAME: RAE WELLER : 1960 GENDER: FEMALE VISIT DATE: 11/25/2020 DISCHARGE DATE: 11/25/20 1534 VISIT LOCKED DATE TIME: PHYSICIAN: HIGINIO WARNER MD PHYSICIAN PAGER NO: ACTIVE RESOURCE: HIGINIO WARNER MD REASON FOR APPOINTMENT 1. WORKMEN'S COMP. FOLLOW-UP ON PT HISTORY OF PRESENT ILLNESS GENERAL: 60-YEAR-OLD FEMALE PATIENT WITH A HISTORY OF CHRONIC LOW BACK PAIN. SHE SUFFERED FROM A WORK RELATED INJURY IN 04/30/2019 WHILE WORKING AT [email or web address] [facility] [employer]. SHE WAS MOVING A PATIENT AND INJURED HER BACK. HER PAIN IS IN THE LOWER BACK AND RADIATES TO BOTH LEGS BUT MAINLY THE LEFT LEG, BUTTOCK. SHE NOTED THAT IF SHE STANDS FOR A WHILE, SHE GETS NUMBNESS AND PAIN DOWN THE LEGS. SHE ALSO NOTICED WALKING FOR LONG DISTANCES CAUSES THIS PAIN WELL. THE PATIENT RECEIVED AN INJECTION THAT GAVE HER A SEVERE HEADACHES AND MADE HER VERY SICK.. THE PATIENT WAS STARTED ON PHYSICAL THERAPY AND SHE IS NOT SURE IF IT HELPED OR NOT. FALL RISK SCREENING: SCREENING : NO FALLS REPORTED IN THE LAST YEAR. PAIN SCREENING: PATIENT HAS A COMPLAINT OF ACUTE OR CHRONIC PAIN :YES LOCATION OF PAIN:LOW BACK INTENSITY OF PAIN (SCALE OF 1 TO 10):6 WHAT DOES YOUR PAIN FEEL LIKE:ACHING, BURNING, SHOOTING DURATION:ONLY WITH SPECIFIC ACTIVITIES PAIN IS INCREASED BY:ACTIVITIES, PROLONGED STANDING PAIN IS DECREASED BY:OTHERS HEAT NURSING NOTE: -. PAIN CENTER INTAKE QUESTIONS: DO YOU HAVE A HISTORY OF MRSA? :YES 1997 DO YOU TAKE A BLOOD THINNERS? :YES ELIQUIS 5 MG DO YOU HAVE ANY BLEEDING DISORDERS? :NO ANY NEW NUMBNESS OR WEAKNESS IN YOUR LEGS OR ARMS? :YES PAIN SHOOTS DOWN INTO LEFT LEG INTO FOOT ANY PACEMAKER,DEFIBRILLATOR, OR DORSAL COLUMN STIMULATOR? :NO DO YOU HAVE ANY RASHES OR OPEN SORES? :NO ARE YOU ALLERGIC TO IV DYE? :NO ARE YOU DIABETIC? :NO ANY NEW PROBLEMS WITH YOUR MEDICATIONS? :NO HAVE YOU RECEIVED A VACCINE IN THE PAST 30 DAYS? :NO DO YOU PLAN TO RECEIVE A VACCINE IN THE NEXT 21 DAYS? :NO DO YOU NEED ANY PRESCRIPTION? :NO DO YOU TAKE ANY IMMUNOSUPPRESSIVE MEDICATIONS? :NO IS THERE A CHANCE YOU COULD BE ? :NO ARE YOU BREAST FEEDING? :NO CURRENT MEDICATIONS TAKING ALBUTEROL SULFATE HFA 108 (90 BASE) MCG/ACT AEROSOL SOLUTION 2 PUFFS INHALATION FOUR TIMES DAILY PRN, NOTES: PRN TAKING ALBUTEROL SULFATE (2.5 MG/3ML) 0.083% NEBULIZATION SOLUTION 3 ML NEEDED INHALATION EVERY 4 HOURS NEEDED TAKING ZINC GLUCONATE 50 MG TABLET 1 TABLET WITH A MEAL ORALLY ONCE A DAY TAKING TUMS 500 MG TABLET CHEWABLE 1 TABLET ORALLY TWICE DAILY NEEDED TAKING MAGNESIUM OXIDE 400 MG TABLET 1 TAB ORALLY DAILY TAKING TIZANIDINE HCL 2 MG CAPSULE 1 TABLET NEEDED ORALLY THREE TIMES A DAY NEEDED, NOTES: TAKES AT BEDTIME TAKING FAMOTIDINE 40 MG TABLET 1 TABLET AT BEDTIME ORALLY ONCE A DAY TAKING ARNUITY ELLIPTA 200 MCG/ACT AEROSOL POWDER BREATH ACTIVATED 1 PUFF INHALATION ONCE A DAY TAKING ANORO ELLIPTA 62.5-25 MCG/INH AEROSOL POWDER BREATH ACTIVATED 1 PUFF INHALATION ONCE A DAY TAKING SYNTHROID 100 MCG TABLET 1 TABLET ORALLY ONCE A DAY: EMORY TAKING SPIRONOLACTONE 50 MG TABLET 1 TAB ORALLY ONCE A DAY TAKING CHLORTHALIDONE 25 25 MG TABLET 1 TABLET ORAL DAILY TAKING GABAPENTIN 100 MG TABLET DIRECTED ORALLY ONCE A DAY TAKING VITAMIN D 2000 UNIT CAPSULE 1 CAPSULE ORALLY ONCE A DAY TAKING LORATADINE 10 MG TABLET 1 TABLET ORALLY ONCE A DAY TAKING POTASSIUM CHLORIDE ER 20 MEQ TABLET EXTENDED RELEASE 1 TABLET WITH FOOD ORALLY ONCE A DAY, NOTES: DUPLICATE TAKING METFORMIN HCL 500 MG TABLET 1 TABLET WITH A MEAL ORALLY ONCE A DAY TAKING METOPROLOL TARTRATE 50 MG TABLET TAKE 1 TAB (50MG) IN THE MONRING AND 1/2 TAB (25MG) AT NIGHT ORALLY DIRECTED TAKING ELIQUIS 5 MG TABLET 1 TAB ORALLY TWICE A DAY TAKING TYLENOL 8 HOUR ARTHRITIS PAIN 650 MG TABLET EXTENDED RELEASE 1 TAB ORALLY EVERY 8 HRS NOT-TAKING SYNTHROID 100 MCG TABLET 1 TABLET IN THE MORNING ON AN EMPTY STOMACH ORALLY ONCE A DAY NOT-TAKING ZINC 50 MG TABLET 1 TABLET ORALLY ONCE A DAY NOT-TAKING MUCINEX 600 MG TABLET EXTENDED RELEASE 12 HOUR 1 TABLET NEEDED ORALLY EVERY 12 HRS NOT-TAKING VITAMIN D3 50 MCG (2000 UT) CAPSULE TAKE ONE CAPSULE BY MOUTH EVERY DAY NOT-TAKING VICTOZA 18 MG/3ML SOLUTION PEN-INJECTOR TAKE 0.6MG ONCE DAILY FOR 1 WEEK. THEN INCREASE TO 1.2 MG DAILY SUBCUTANEOUS ONCE DAILY NOT-TAKING TYLENOL EXTRA STRENGTH 500 MG TABLET 2 TABLETS NEEDED ORALLY EVERY 6 HRS NOT-TAKING METOPROLOL SUCCINATE ER 25 MG TABLET EXTENDED RELEASE 24 HOUR 1 TABLET ORALLY ONCE A DAY NOT-TAKING ZANTAC 150 MG TABLET 1 TABLET AT BEDTIME ORALLY ONCE A DAY, NOTES: STOPPED PER PT NOT-TAKING FLUTICASONE PROPIONATE 93 MCG/ACT EXHALER SUSPENSION 1 SPRAY IN EACH NOSTRIL NASALLY TWICE A DAY, NOTES: STOPPED PER PT NOT-TAKING POTASSIUM CHLORIDE ANGELA ER 20 MEQ TABLET EXTENDED RELEASE TAKE ONE TABLET BY MOUTH EVERY DAY WITH FOOD ORALLY ONCE A DAY NOT-TAKING MUCINEX 600 MG TABLET EXTENDED RELEASE 12 HOUR 1 TABLET NEEDED ORALLY EVERY 12 HRS NOT-TAKING OMEPRAZOLE 40 MG CAPSULE DELAYED RELEASE 1 CAPSULE ORALLY ONCE A DAY NOT-TAKING PRILOSEC 40 MG CAPSULE DELAYED RELEASE 1 CAPSULE ORALLY ONCE A DAY NOT-TAKING NORTRIPTYLINE HCL 10 MG CAPSULE 1 CAPSULE ORALLY ONCE A DAY NOT-TAKING METHOCARBAMOL 500 MG TABLET 1.5 TABLETS ORALLY EVERY 4 HRS NOT-TAKING STIOLTO RESPIMAT 2.5-2.5 MCG/ACT AEROSOL SOLUTION 2 PUFFS INHALATION ONCE A DAY NOT-TAKING MOMETASONE FUROATE 50 MCG/ACT SUSPENSION 2 SPRAYS IN EACH NOSTRIL NASALLY TWICE A DAY NOT-TAKING BD SYRINGE 60 ML MISCELLANEOUS DX E11.9 INTRAMUSCULARLY TWICE DAILY NOT-TAKING [facility] RANITIDINE 75 MG TABLET DIRECTED ORALLY TWICE DAILY NEEDED NOT-TAKING LUMBAR BACK BRACE/SUPPORT PAD - MISCELLANEOUS DIRECTED NOT-TAKING ACETAMINOPHEN 500 MG CAPSULE 2 CAPSULES NEEDED ORALLY EVERY 6 HRS NOT-TAKING SALINE 0.65 % SOLUTION 2 SPRAYS IN EACH NOSTRIL NEEDED NASALLY EVERY 2 HRS NOT-TAKING TAMIFLU 75 MG CAPSULE 1 CAPSULE ORALLY TWICE A DAY MEDICATION LIST REVIEWED AND RECONCILED WITH THE PATIENT PAST MEDICAL HISTORY HYPERTENSIVE HEART DISEASE WITH HEART FAILURE (AHA/ACC GOAL OF < 130/< 80)-AFIB MORBID OBESITY, BMI >40 ATRIAL FIBRILLATION (PAROXYSMAL) BILATERAL OSTEOARTHRITIS UNSPECIFIED MONOARTHRITIS, LOWER LEG HEIDE COMPLIANT CPAP ECHO AUGUST 2015 SHOW BORDERLINE LVH WITH HYPERKINETIC WALL MOTION. BORDERLINE LAE WITH NORMAL DOPPLER ASSESSMENT OF LV DIASTOLIC FUNCTION. NORMAL RIGHT HEART CHAMBER, ESTIMATED PA AND CVP PRESSURES. AORTIC VALVE SCLEROSIS WITHOUT FUNCTIONAL VALVULAR ABNORMALITY. NO PERICARDIAL EFFUSION HYPOTHYROIDISM ROSACEA ASTHMA TREADMILL STRESS TEST JULY 2015. BASELINE ST-T WAVE ABNORMALITY IS MORE PROMINENT. NO ARRHYTHMIA. NORMAL PULMONARY UPTAKE AT PEAK EXERCISE. NORMAL LV SIZE WITH HYPERKINETIC WALL MOTION. LVEF 81%. NO REVERSIBLE STRESS MYOCARDIAL PROFUSION DEFECT MILD INTERMITTENT ASTHMA WITHOUT COMPLICATION HYPERTENSION BACK PAIN NECK PAIN ARM PAIN BILATERAL RINGING EARS ALLERGIES ULTRAM: FACIAL SWELLING - ALLERGY PENICILLIN (FOR ALLERGIES USE ONLY): SWELLING - ALLERGY LATEX GLOVES: SWELLING - ALLERGY AMBIEN: ANGIOEDEMA - ALLERGY LISINOPRIL: SWELLING - ALLERGY LIPITOR: SEVERE HEADACHE, EYE PRESSURE - SIDE EFFECTS SOCIAL HISTORY GENERAL: TOBACCO USE ARE YOU A:FORMER SMOKER SMOKES 1.5 PACK A DAY FOR 25 YEARS QUIT MORE THAN 10 YEARS AGO LATEX QUESTIONNAIRE LATEX ALLERGY : HAVE YOU EVER DEVELOPED ANY TYPE OF REACTION AFTER HANDLING LATEX PRODUCTS SUCH RUBBER GLOVES, CONDOMS, DIAPHRAGMS, BALLOONS, SOCKS, OR UNDERWEAR?YES - PLEASE INDICATE :RUBBER GLOVES, BALLOONS LATEX ALLERGY : HAVE YOU EVER DEVELOPED ANY TYPE OF REACTION DURING OR AFTER DENTAL APPOINTMENT, VAGINAL/RECTAL EXAMINATION, SURGICAL PROCEDURE, OR ANY OTHER EXPOSURE?YES - PLEASE INDICATE :VAGINAL EXAM LATEX RISK : HAVE YOU EVER HAD ANY DIFFICULTY BREATHING OR HIVES AFTER EATING OR HANDLING ANY FRUITS, OR VEGETABLES; SUCH KIWI, BANANAS, STONE FRUITS, OR CHESTNUTSNO LATEX RISK : DO YOU HAVE A PREVIOUS PERSONAL HISTORY OF MORE THAN NINE SURGERIES, SPINA BIFIDA, OR REPEATED CATHERIZATIONS? NO LATEX RISK : ARE YOU FREQUENTLY EXPOSED TO LATEX PRODUCTS IN YOUR OCCUPATION?NO DATE ASKED : 11/25/2020 ALCOHOL USE: NO. BMI CARE GOAL FOLLOW-UP ABOVE NORMAL BMI FOLLOW-UPGIVING ENCOURAGEMENT TO EXERCISE ALCOHOL SCREENING DID YOU HAVE A DRINK CONTAINING ALCOHOL IN THE PAST YEAR?NO POINTS0 INTERPRETATIONNEGATIVE RECREATIONAL DRUG USE DRUG USE?NO CAFFEINE CAFFEINE USE? 2 CUPS OF COFFEE A DAY SEXUAL HX HAD SEX IN THE LAST 12 MONTHS (VAGINAL, ORAL, OR ANAL)?NO HIV / HEP-C SCREENING HIV TEST OFFERED TO PATIENT:YES DATE OFFERED:03/17/2016 TEST ACCEPTED:NO REASON:PATIENT DECLINED HEP-C TEST OFFERED TO PATIENT:YES DATE OFFERED:03/17/2016 TEST ACCEPTED:NO REASON:PATIENT DECLINED [id number] LANG[employer]AGE MARTIN[employer]. EDUCATION LEVEL OF EDUCATION:HIGH SCHOOL LEARNING BARRIERS / SPECIAL NEEDS CHANGE FROM LAST VISIT?NO BARRIERS TO LEARNING?NO HEARING IMPAIRED?YES VISION IMPAIRED?YES :CORRECTIVE LENSES GLASSES COGNITIVELY IMPAIRED?NO READINESS TO LEARN?YES LEARNING PREFERENCES?NO LEARNING CAPABILITIES PRESENT?YES EMOTIONAL BARRIERS?NO SPECIAL DEVICES?YES :OTHER CPAP- DOES NOT USE IT PRACTICE OFFICE ASSOCIATE NEEDED?NO DOMESTIC VIOLENCE PHYSICAL ABUSE, VERBAL ABUSE BY EX,NO LONGER INVOLVED.HAD COUNSELING. 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 DIRECT CARE STAFF AT THE [facility],HAS DIRECTOR LONG TERM CARE AND HOSPICE. DIET: REGULAR DIET /NO H/O ED, CUT DOWN BREAD HAS INCREASED PROTEIN INTAKE. EXERCISE: WATER AEROBICS AT THE Y 3 X A WEEK. MARITAL STATUS: .. OTHERS AT HOME: MOTHER. REVIEW OF SYSTEMS CONSTITUTIONAL: ANY RECENT FEVER NO . CHILLS NO . WEIGHT CHANGE OF UNKNOWN REASONS NO . GASTROENTEROLOGY: NEW UNEXPLAINABLE CHANGES IN BOWEL CONTROL NO . CONSTIPATION NO . GENITOURINARY: ANY NEW CHANGE IN BLADDER CONTROL? NO . NEUROLOGY: NEW ONSET DIZZINESS OR NEUROLOGICAL CHANGES NOT MENTIONED NO . NEW NUMBNESS OR PAIN PATTERNS NOT MENTIONED AND PERTINENT TO TODAY'S VISIT NO . CARDIOLOGY: NEW CHEST PRESSURE NO . PATIENT DENIES NO . RESPIRATORY: UNEXPLAINABLE COUGH NO . NEW SHORTNESS OF BREATH NO . A1C ELEVATED. VITAL SIGNS WT 276.2 LBS, WT-KG 125.28 KG, HT 65 IN, BMI 45.96 INDEX, BP 132/77 MM HG, HR 78 /MIN, RR 18 /MIN, TEMP 97.9 F, OXYGEN SAT % 95%, NA INITIALS AW 1346. EXAMINATION GENERAL EXAMINATION: THE PATIENT IS ALERT, ORIENTED TIMES THREE AND COOPERATIVE. THERE IS SOME TENDERNESS IN THE LOWER BACK IN THE PARASPINAL MUSCLE GROUP. THERE ARE PRESENCE OF TRIGGER POINTS WITH BANDS OF TISSUE AND RESTRICTION OF MOVEMENT. ASSESSMENTS MYALGIA - M79.10 (PRIMARY) MYOFASCIAL PAIN SYNDROME - M79.18 TREATMENT MYALGIA MED: PAIN BENADRYL TAB 25MG ORALLY DIPHENHYDRAMINE (ORDERED FOR 12/26/2020)[id number] MED: PAIN NORCO TABLET 5MG/325MG ORALLY HYDROCODONE/ACETAMINOPHEN (ORDERED FOR 12/26/2020)[id number] NOTES: TRIGGER POINT INJECTION, TRIGGER POINT INJECTION HOME CARE, TRIGGER POINT INJECTIONS MATERIAL WAS PUBLISHED TO PORTAL. PRE PROCEDURE INSTRUCTIONS REVIEWED WITH PT. Hue FAULKNER RN 11/25/20 5928. CLINICAL NOTES: I DISCUSSED ALTERNATIVES WITH MS. WELLER. I WILL REQUEST AUTHORIZATION FOR TRIGGER POINT INJECTIONS BILATERAL LOW BACK, BOOK AFTER APPROVED. THE PATIENT REPORTS UNDERSTANDING AND AGREES WITH THE PLAN. I, BRYON BELTRAN, DOCUMENTED THE ABOVE INFORMATION ACTING A SCRIBE FOR DR. WARNER. I HAVE REVIEWED THE ABOVE DOCUMENT, WRITTEN BY BRYON BELTRAN LOCAL TRUCK DRIVER, AND I VERIFY THAT IT IS ACCURATE. OTHERS NOTES: TRIGGER POINT INJECTION MATERIAL WAS PRINTED,TRIGGER POINT INJECTION MATERIAL WAS PRINTED,TRIGGER POINT INJECTION HOME CARE MATERIAL WAS PRINTED. PROCEDURES PN WORKMANS' COMP OPINION IN YOUR OPINION, WAS THE INCIDENT THAT THE PATIENT DESCRIBED THE COMPETENT MEDICAL CAUSE OF THIS INJURY/ILLNESS? YES ARE THE PATIENT'S COMPLAINTS CONSISTENT WITH HIS/HER HISTORY OF THE INJURY/ILLNESS? YES IS THE PATIENT'S HISTORY OF THE INJURY/ILLNESS CONSISTENT WITH YOUR OBJECTIVE FINDING? YES WHAT IS THE PERCENTAGE OF TEMPORARY IMPAIRMENT? MODERATE TO MARKED = 66.7% . IS THE PATIENT WORKING? NO . DOCTOR ON SITE: HIGINIO ROLAND MD VISIT CODES PROCEDURE CODES FA211 ESTABILISHED PATIENT [facility] CHARGE [address] OFFICE/OUTPATIENT VISIT EST DISPOSITION & COMMUNICATION FOLLOW UP REQUEST AUTH FOR TRIGGER POINT INJECTIONS BILATERAL LOW BACK (REASON: REQUEST AUTH FOR TRIGGER POINT INJECTIONS BILATERAL LOW BACK) ELECTRONICALLY SIGNED BY HIGINIO WARNER MD, MD ON 11/28/2020 AT 08:33 PM EDT DISCLAIMER : THIS IS A VISIT SUMMARY EXTRACTED FROM THE [employer] CHART. IT IS NOT A COPY OF THE [employer] PROGRESS NOTE. JAMEL
== END ==
LOC: M PAIN 13:45
PROVIDERS: ATTEND Anesthesiology
DX: M79.18 Myalgia, other site (principal); I10 Essential (primary) hypertension; E66.01 Morbid (severe) obesity due to excess calories; Z68.41 Body mass index [BMI] 40.0-44.9, adult; I48.0 Paroxysmal atrial fibrillation; G47.33 Obstructive sleep apnea (adult) (pediatric); E03.9 Hypothyroidism, unspecified; L71.9 Rosacea, unspecified; J45.20 Mild intermittent asthma, uncomplicated; M54.2 Cervicalgia; Z87.891 Personal history of nicotine dependence; Z79.01 Long term (current) use of anticoagulants; Z79.84 Long term (current) use of oral hypoglycemic drugs; Z79.899 Other long term (current) drug therapy; Z88.0 Allergy status to penicillin; Z88.8 Allergy status to other drugs, medicaments and biological substances; Z91.040 Latex allergy status

== ENCOUNTER → 2020-12-16 | Outpatient (CLI) | payer OTHER | LOC: M LABSMTC 10:55 | PROVIDERS: ATTEND Anesthesiology | DX: Z11.52 Encounter for screening for COVID-19 (principal); Z20.822 Contact with and (suspected) exposure to COVID-19 ==

== ENCOUNTER → 2020-12-21 | Outpatient (CLI) | payer OTHER ==
[~2020-12-21] MED LIST changes: +BUPIVACAINE HCL 0.25% 10ML VIAL As Ordered ONE; +BUPIVACAINE HCL 0.25% 30ML VIAL As Ordered ONE; +NORCO, ANEXSIA 5/325MG TABLET (HYDROcodone/ACETAMINOPHEN) As Ordered ONE
== END ==
LOC: M PAIN 08:30
PROVIDERS: ATTEND Anesthesiology
DX: M79.10 Myalgia, unspecified site (principal); E11.9 Type 2 diabetes mellitus without complications; G47.33 Obstructive sleep apnea (adult) (pediatric); E03.9 Hypothyroidism, unspecified; J45.909 Unspecified asthma, uncomplicated; Z86.14 Personal history of Methicillin resistant Staphylococcus aureus infection; Z87.891 Personal history of nicotine dependence; Z88.0 Allergy status to penicillin; Z88.1 Allergy status to other antibiotic agents; Z88.8 Allergy status to other drugs, medicaments and biological substances; E66.01 Morbid (severe) obesity due to excess calories; Z68.42 Body mass index [BMI] 45.0-49.9, adult; Z79.01 Long term (current) use of anticoagulants; Z79.51 Long term (current) use of inhaled steroids; Z79.899 Other long term (current) drug therapy

== ENCOUNTER → 2021-01-20 | Outpatient (CLI) | payer OTHER ==
[~2021-01-20] MED LIST changes: -BUPIVACAINE HCL 0.25% 10ML VIAL As Ordered ONE; -BUPIVACAINE HCL 0.25% 30ML VIAL As Ordered ONE; -NORCO, ANEXSIA 5/325MG TABLET (HYDROcodone/ACETAMINOPHEN) As Ordered ONE
== END ==
LOC: M PAIN 09:15
PROVIDERS: ATTEND Anesthesiology
DX: M48.062 Spinal stenosis, lumbar region with neurogenic claudication (principal); G89.29 Other chronic pain; G47.33 Obstructive sleep apnea (adult) (pediatric); E03.9 Hypothyroidism, unspecified; J45.20 Mild intermittent asthma, uncomplicated; Z87.891 Personal history of nicotine dependence; Z88.0 Allergy status to penicillin; Z88.8 Allergy status to other drugs, medicaments and biological substances; Z91.040 Latex allergy status; E66.01 Morbid (severe) obesity due to excess calories; Z68.42 Body mass index [BMI] 45.0-49.9, adult; Z79.01 Long term (current) use of anticoagulants; Z79.51 Long term (current) use of inhaled steroids; Z79.899 Other long term (current) drug therapy

== ENCOUNTER → 2021-01-21 | Outpatient (CLI) | payer OTHER ==
[2021-01-21 17:51] LABS: HEMOGLOBIN A1c 5.6 %
[2021-01-21 17:54] LABS: ALBUMIN 3.5 GM/DL (3.2-5.2); BILIRUBIN,TOTAL 0.4 MG/DL (0.2-1.0); CALCIUM LEVEL 9.2 MG/DL (8.8-10.2); CREATININE FOR GFR 1.03 MG/DL (0.55-1.30); GLOMERULAR FILTRATION RATE 57.8 (>45); POTASSIUM SERUM 4.3 MEQ/L (3.5-5.1); TOTAL PROTEIN 7.3 GM/DL (6.4-8.2)
== END ==
LOC: M PLALAB 15:30
PROVIDERS: ATTEND Student in an Organized Health Care Education/Training Program
DX: R73.03 Prediabetes (principal); I10 Essential (primary) hypertension

== ENCOUNTER → 2021-01-21 | Outpatient (REF) | payer OTHER | LOC: M SFHCPLAZ 15:13 | DX: Z53.20 Procedure and treatment not carried out because of patient's decision for unspecified reasons (principal) ==

== ENCOUNTER → 2021-02-01 | Outpatient (CLI) | payer OTHER ==
--- NOTE | 2021-02-02 11:27 | REPVR ---
PROCEDURE INFORMATION: Exam: MR Cervical Spine Without Contrast Exam date and time: 02/01/2021 3:28 PM Age: 60 years old Clinical indication: Neck pain; Additional info: Cervical disc disorder c5-6 TECHNIQUE: Imaging protocol: Multiplanar magnetic resonance images of the cervical spine without contrast. COMPARISON: CR Spine, Cervical 11/09/2020 9:59 AM FINDINGS: Vertebrae: There is straightening of the normal cervical lordosis. Spinal cord: Normal signal. No cord compression. C2-C3: There is moderate right facet arthropathy. There is no spinal canal or neural foraminal stenosis. C3-C4: There is disc dehydration, mild disc space narrowing, a broad-based posterior disc osteophyte complex, marked uncinate spurring, thickening of the ligamentum flavum, and mild facet arthropathy. This is causing mild/moderate spinal canal stenosis and severe bilateral neural foraminal narrowing. C4-C5: There is a small central disc protrusion, moderate uncinate spurring, and minimal facet arthropathy. This is causing mild spinal canal stenosis and mild bilateral neural foraminal narrowing. C5-C6: There is a shallow broad-based posterior disc osteophyte complex, marked uncinate spurring, and mild facet arthropathy. This is causing mild spinal canal stenosis and severe bilateral neural foraminal narrowing. C6-C7: There is a small shallow right paracentral disc protrusion and minimal uncinate spurring. There is no significant spinal canal or neural foraminal stenosis. C7-T1: No significant disc disease. No significant spinal stenosis. Soft tissues: There is edema around the spinous processes of C5 through C7. Clinical correlation is recommended. Vertebral arteries: Expected flow voids in the vertebral arteries. IMPRESSION: 1. Degenerative changes of the cervical spine as discussed above 2. Mild edema around the spinous processes of C5 through C7. Clinical correlation for recent trauma is suggested. Electronically signed by: Neel Mcclain On 02/02/2021 11:27:12 AM
== END ==
LOC: M PLAIMG 14:25
PROVIDERS: ATTEND Family Medicine
DX: M50.122 Cervical disc disorder at C5-C6 level with radiculopathy (principal)

== ENCOUNTER → 2021-02-03 | Outpatient (CLI) | payer OTHER | LOC: M PAIN 10:00 | PROVIDERS: ATTEND Anesthesiology | DX: M47.812 Spondylosis without myelopathy or radiculopathy, cervical region (principal); M50.10 Cervical disc disorder with radiculopathy, unspecified cervical region; I11.0 Hypertensive heart disease with heart failure; I50.9 Heart failure, unspecified; E66.01 Morbid (severe) obesity due to excess calories; I48.0 Paroxysmal atrial fibrillation; G47.33 Obstructive sleep apnea (adult) (pediatric); E03.9 Hypothyroidism, unspecified; L71.9 Rosacea, unspecified; J45.20 Mild intermittent asthma, uncomplicated; E11.9 Type 2 diabetes mellitus without complications; Z87.891 Personal history of nicotine dependence; Z68.42 Body mass index [BMI] 45.0-49.9, adult; Z79.01 Long term (current) use of anticoagulants; Z79.84 Long term (current) use of oral hypoglycemic drugs; Z79.899 Other long term (current) drug therapy; Z88.0 Allergy status to penicillin; Z88.8 Allergy status to other drugs, medicaments and biological substances; Z91.040 Latex allergy status ==

== ENCOUNTER → 2021-02-09 | Outpatient (CLI) | payer OTHER ==
--- NOTE | 2021-02-09 14:12 | REP ---
INDICATION: PAIN IN RIGHT KNEE COMPARISON: None TECHNIQUE: Four views. The patient was unable to flex the knee for the sunrise view. FINDINGS: There is minimal tricompartmental marginal osteophytosis. There is minimal medial compartmental narrowing. There is no acute fracture, dislocation, or subluxation, however, the exam is limited without the sunrise view. IMPRESSION: Mild chronic changes and exam limitations as described above. <Electronically signed by Nik Johnson > 02/09/21 [id number]
== END ==
LOC: M PLAIMG 13:41
PROVIDERS: ATTEND Nurse Practitioner Family
DX: M25.561 Pain in right knee (principal); M25.761 Osteophyte, right knee; M25.861 Other specified joint disorders, right knee

== ENCOUNTER → 2021-03-09 | Outpatient (CLI) | payer OTHER ==
--- NOTE | 2021-03-10 08:37 | REP ---
INDICATION: M51.36 DDD LUMBAR. COMPARISON: 08/19/2020. TECHNIQUE: Multiple sagittal and axial sequences without contrast. FINDINGS: The vertebral bodies are normal in height and well aligned. There is no fracture or dislocation. No abnormal bone marrow signal is seen. There is loss of water signal and disc degeneration diffusely. There is minimal disc space narrowing at L3-4 and L4-5. The conus is unremarkable. At L1-2, L2-3 and L3-4 there is no significant disc bulging. There is no disc herniation. There is no spinal stenosis or foraminal narrowing. At L4-5 there is a stable diffuse disc bulge. There are hypertrophic changes at the facets and ligamentum flavum. There is mild stable spinal stenosis. There is no significant foraminal narrowing. At L5-S1 there is no significant disc bulge or herniation. There are mild hypertrophic changes at the facets. There is no evidence of spinal stenosis or neural foraminal narrowing. IMPRESSION: Stable findings as discussed in detail above. <Electronically signed by Justo Geller > 03/10/21 0833
== END ==
LOC: M RAD 10:32
PROVIDERS: ATTEND Physician Assistant
DX: M51.36 Other intervertebral disc degeneration, lumbar region (principal)

== ENCOUNTER → 2021-03-15 | Outpatient (CLI) | payer OTHER ==
--- NOTE | 2021-03-15 10:15 | REP ---
INDICATION: PAIN IN RIGHT KNEE COMPARISON: 02/09/2021 TECHNIQUE: AP, lateral, bilateral oblique and sunrise views. FINDINGS: Mild cortical irregularity at the femoral condyles again noted. Very subtle chondrocalcinosis in the medial tibiofemoral joint compartment is suspected. [place] view demonstrates decreased patellofemoral joint space with subchondral sclerosis. No evidence for acute fracture or dislocation. No effusion. IMPRESSION: Relatively stable mild degenerative changes. <Electronically signed by Atif Santillan > 03/15/21 1011
== END ==
LOC: M PLAIMG 09:36
PROVIDERS: ATTEND Nurse Practitioner Family
DX: M25.561 Pain in right knee (principal)

== ENCOUNTER 2021-03-18 17:29 | Emergency (ER) | payer OTHER ==
[~2021-03-18] VITALS: Ht 165.1 cm; Wt 123.6 kg
[~2021-03-18 17:29] MED LIST changes: +LOSA50TA28 PO; -LOSA50TA88 PO; +POTA-151 PO; -POTA20TA6 PO
[2021-03-18 21:20] LABS: BASO % 0.4 % (0.0-1.0); EOS # 0.1 10^3/uL (0.0-0.5); EOS % 1.3 % (0.0-3.0); HEMATOCRIT 41.9 % (36.0-47.0); HEMOGLOBIN 13.6 g/dl (12.0-15.5); LYMPH # 2.1 10^3/uL (1.5-5.0); LYMPH % 25.2 % (24.0-44.0); MEAN CORPUSCULAR HEMOGLOBIN 31.2 pg (27.0-33.0); MEAN CORPUSCULAR HGB CONC 32.5 g/dl (32.0-36.5); MEAN CORPUSCULAR VOLUME 96.1 fl (80.0-96.0); MONO # 0.7 10^3/uL (0.0-0.8); MONO % 8.2 % (2.0-8.0); NEUTROPHILS # 5.4 10^3/uL (1.5-8.5); NEUTROPHILS % 64.7 % (36.0-66.0); PLATELET COUNT, AUTOMATED 256 10^3/uL (150-450); RED BLOOD COUNT 4.36 10^6/uL (4.00-5.40); WHITE BLOOD COUNT 8.3 10^3/uL (4.0-10.0)
[2021-03-18 21:37] LABS: ALBUMIN 3.7 GM/DL (3.2-5.2); ALT/SGPT 31 U/L (12-78); BILIRUBIN,DIRECT 0.2 MG/DL (0.0-0.2); BILIRUBIN,TOTAL 0.5 MG/DL (0.2-1.0); BLOOD UREA NITROGEN 15 MG/DL (7-18); C REACTIVE PROTEIN QUANTITATIV 0.53 MG/DL (0.00-0.30); CALCIUM LEVEL 9.8 MG/DL (8.8-10.2); CARBON DIOXIDE LEVEL 32 MEQ/L (21-32); CHLORIDE LEVEL 102 MEQ/L (98-107); CREATININE FOR GFR 0.85 MG/DL (0.55-1.30); GLOMERULAR FILTRATION RATE > 60.0 (>45); GLUCOSE, FASTING 91 MG/DL (70-100); POTASSIUM SERUM 3.4 MEQ/L (3.5-5.1); SODIUM LEVEL 139 MEQ/L (136-145); TOTAL PROTEIN 6.8 GM/DL (6.4-8.2)
[2021-03-18 21:48] LABS: ERYTHROCYTE SEDIMENTATION RATE 16 mm/hr (0-30)
[2021-03-18 23:09] VITALS: BP 140/82
== END 2021-03-18 23:11 | disposition home or self-care (01) ==
LOC: M ED 17:29
DX: M66.0 Rupture of popliteal cyst (principal); I11.0 Hypertensive heart disease with heart failure; I50.9 Heart failure, unspecified; J44.9 Chronic obstructive pulmonary disease, unspecified; J45.909 Unspecified asthma, uncomplicated; I48.91 Unspecified atrial fibrillation; E03.9 Hypothyroidism, unspecified; K21.9 Gastro-esophageal reflux disease without esophagitis; Z79.899 Other long term (current) drug therapy; Z79.01 Long term (current) use of anticoagulants; Z88.0 Allergy status to penicillin; Z88.8 Allergy status to other drugs, medicaments and biological substances; Z91.040 Latex allergy status

== ENCOUNTER → 2021-05-05 | Outpatient (CLI) | payer OTHER | LOC: M PAIN 10:00 | PROVIDERS: ATTEND Anesthesiology | DX: M47.812 Spondylosis without myelopathy or radiculopathy, cervical region (principal); M79.10 Myalgia, unspecified site; M79.18 Myalgia, other site; I10 Essential (primary) hypertension; E66.01 Morbid (severe) obesity due to excess calories; I48.0 Paroxysmal atrial fibrillation; G47.33 Obstructive sleep apnea (adult) (pediatric); E03.9 Hypothyroidism, unspecified; J45.909 Unspecified asthma, uncomplicated; E11.9 Type 2 diabetes mellitus without complications; Z87.891 Personal history of nicotine dependence; Z88.0 Allergy status to penicillin; Z88.8 Allergy status to other drugs, medicaments and biological substances; Z91.040 Latex allergy status; Z68.41 Body mass index [BMI] 40.0-44.9, adult; Z79.01 Long term (current) use of anticoagulants; Z79.84 Long term (current) use of oral hypoglycemic drugs; Z79.899 Other long term (current) drug therapy ==

== ENCOUNTER → 2021-06-24 | Outpatient (REF) | payer OTHER | LOC: M SFHCPLAZ 14:19 | PROVIDERS: ATTEND Family Medicine | DX: Z53.9 Procedure and treatment not carried out, unspecified reason (principal) ==

== ENCOUNTER → 2021-06-24 | Outpatient (CLI) | payer OTHER ==
[2021-06-24 17:11] LABS: BASO % 0.4 % (0.0-1.0); EOS # 0.3 10^3/uL (0.0-0.5); EOS % 4.2 % (0.0-3.0); HEMATOCRIT 40.3 % (36.0-47.0); HEMOGLOBIN 13.3 g/dl (12.0-15.5); LYMPH # 1.6 10^3/uL (1.5-5.0); LYMPH % 22.1 % (24.0-44.0); MEAN CORPUSCULAR HEMOGLOBIN 30.6 pg (27.0-33.0); MEAN CORPUSCULAR VOLUME 92.6 fl (80.0-96.0); MONO # 0.7 10^3/uL (0.0-0.8); MONO % 9.8 % (2.0-8.0); NEUTROPHILS # 4.6 10^3/uL (1.5-8.5); NEUTROPHILS % 63.4 % (36.0-66.0); PLATELET COUNT, AUTOMATED 240 10^3/uL (150-450); RED BLOOD COUNT 4.35 10^6/uL (4.00-5.40); WHITE BLOOD COUNT 7.3 10^3/uL (4.0-10.0)
[2021-06-24 17:39] LABS: BLOOD UREA NITROGEN 11 MG/DL (7-18); CARBON DIOXIDE LEVEL 33 MEQ/L (21-32); CHLORIDE LEVEL 101 MEQ/L (98-107); CREATININE FOR GFR 0.83 MG/DL (0.55-1.30); GLOMERULAR FILTRATION RATE > 60.0 (>45); GLUCOSE, FASTING 88 MG/DL (70-100); POTASSIUM SERUM 3.7 MEQ/L (3.5-5.1); SODIUM LEVEL 138 MEQ/L (136-145)
== END ==
LOC: M PLALAB 14:36
PROVIDERS: ATTEND Student in an Organized Health Care Education/Training Program
DX: R89.9 Unspecified abnormal finding in specimens from other organs, systems and tissues (principal)

== ENCOUNTER → 2021-08-25 | Outpatient (REF) | payer OTHER | LOC: M SFHCPLAZ 16:44 | PROVIDERS: ATTEND Physician Assistant | DX: R05.9 Cough, unspecified (principal) ==

== ENCOUNTER 2021-10-30 20:30 | Emergency (ER) | payer OTHER, MEDICARE ==
[2021-10-30] MEDS ORDERED: METO1TAB7 PO (20:56)
[2021-10-30] MEDS ORDERED: TRAM50TA2 PO (20:56)
[2021-10-30] MEDS ORDERED: TOPR50TA PO (20:56)
[2021-10-30] MEDS ORDERED: TIZA2TA PO (20:56)
[2021-10-30] MEDS ORDERED: METF500T13 PO (20:56)
[2021-10-30] MEDS ORDERED: ONDANSETRON 4MG 2ML VIAL IV ONE (22:25)
[2021-10-30 22:46] VITALS: BP 134/59
== END 2021-10-30 23:15 | disposition home or self-care (01) ==
LOC: M ED 20:30 → EDBD 20:30 → M ED 23:15
DX: R42 Dizziness and giddiness (principal); F12.288 Cannabis dependence with other cannabis-induced disorder; I10 Essential (primary) hypertension; I50.9 Heart failure, unspecified; E11.9 Type 2 diabetes mellitus without complications; J45.909 Unspecified asthma, uncomplicated; I48.91 Unspecified atrial fibrillation; E07.9 Disorder of thyroid, unspecified; G47.33 Obstructive sleep apnea (adult) (pediatric); G89.29 Other chronic pain; Z99.89 Dependence on other enabling machines and devices; Z88.0 Allergy status to penicillin; Z88.8 Allergy status to other drugs, medicaments and biological substances; Z91.040 Latex allergy status; Z87.891 Personal history of nicotine dependence; Z79.899 Other long term (current) drug therapy; Z79.01 Long term (current) use of anticoagulants; Z79.84 Long term (current) use of oral hypoglycemic drugs
CPT/HCPCS: 70450; 80047; 93005; 96374; 99284; J2405

== ENCOUNTER → 2021-11-15 | Outpatient (CLI) | payer MEDICARE ==
[~2021-11-15] MED LIST changes: +METF500T13 PO; +TIZA2TA PO; +TOPR50TA PO; +TRAM50TA2 PO
== END ==
LOC: M WHC 12:18
PROVIDERS: ATTEND Student in an Organized Health Care Education/Training Program
DX: Z12.31 Encounter for screening mammogram for malignant neoplasm of breast (principal)

== ENCOUNTER → 2021-11-16 | Outpatient (CLI) | payer MEDICARE | LOC: M WHC 14:27 | PROVIDERS: ATTEND Obstetrics & Gynecology | DX: N95.0 Postmenopausal bleeding (principal); R93.89 Abnormal findings on diagnostic imaging of other specified body structures ==

== ENCOUNTER → 2021-12-07 | Outpatient (CLI) | payer MEDICARE, OTHER | LOC: M SLEEP 20:00 | PROVIDERS: ATTEND Physician Assistant | DX: R40.0 Somnolence (principal) ==

== ENCOUNTER → 2022-01-05 | Outpatient (CLI) | payer MEDICARE, OTHER ==
[~2022-01-05] MED LIST changes: +ACE65ERTAB PO; +ANOR1AER INH; +ARNU1INH3 INH; +CALC800P PO; +LORA-674 PO; +POTA1TAB23 PO; +VITA200016 PO
[2022-01-05 18:30] LABS: HEMOGLOBIN A1c 5.6 %
[2022-01-05 18:54] LABS: BLOOD UREA NITROGEN 12 MG/DL (7-18); CALCIUM LEVEL 9.2 MG/DL (8.8-10.2); CARBON DIOXIDE LEVEL 31 MEQ/L (21-32); CHLORIDE LEVEL 102 MEQ/L (98-107); GLOMERULAR FILTRATION RATE > 60.0 (>45); GLUCOSE, FASTING 84 MG/DL (70-100); POTASSIUM SERUM 3.5 MEQ/L (3.5-5.1); SODIUM LEVEL 138 MEQ/L (136-145)
[2022-01-05 19:08] LABS: CREATININE, URINE 93.1 MG/DL; MALB URINE SIEMENS 7.3 MG/L; MAU/CREAT RATIO 7.8 MCG/MG (0.0-30.0)
== END ==
LOC: M PLALAB 14:49
PROVIDERS: ATTEND Student in an Organized Health Care Education/Training Program
DX: R73.03 Prediabetes (principal)

== ENCOUNTER → 2022-01-05 | Outpatient (CLI) | payer MEDICARE, OTHER ==
[2022-01-05 18:53] LABS: ALBUMIN 3.7 GM/DL (3.2-5.2); ALT/SGPT 23 U/L (12-78); BILIRUBIN,TOTAL 0.4 MG/DL (0.2-1.0); BLOOD UREA NITROGEN 12 MG/DL (7-18); CALCIUM LEVEL 9.1 MG/DL (8.8-10.2); CARBON DIOXIDE LEVEL 32 MEQ/L (21-32); CHLORIDE LEVEL 103 MEQ/L (98-107); CREATININE FOR GFR 0.93 MG/DL (0.55-1.30); GLOMERULAR FILTRATION RATE > 60.0 (>45); GLUCOSE, FASTING 84 MG/DL (70-100); POTASSIUM SERUM 3.4 MEQ/L (3.5-5.1); SODIUM LEVEL 140 MEQ/L (136-145); TOTAL PROTEIN 6.8 GM/DL (6.4-8.2)
== END ==
LOC: M PLAIMG 14:55
PROVIDERS: ATTEND Family Medicine
DX: M19.071 Primary osteoarthritis, right ankle and foot (principal); E87.6 Hypokalemia; M79.674 Pain in right toe(s); R73.03 Prediabetes

== ENCOUNTER → 2022-01-16 | Outpatient (CLI) | payer MEDICARE, OTHER | LOC: M LABSMTC 09:05 | PROVIDERS: ATTEND Anesthesiology | DX: Z01.812 Encounter for preprocedural laboratory examination (principal); Z20.822 Contact with and (suspected) exposure to COVID-19 ==

== ENCOUNTER 2022-01-18 11:08 | Day surgery (SDC) | payer MEDICARE, OTHER ==
[~2022-01-18] VITALS: Ht 167.6 cm; Wt 109.8 kg
[~2022-01-18 11:08] MED LIST changes: +CIPROFLOXACIN 400 MG in IV 1 EA IV ONE; -DOXY-350 PO; +DOXY-444 PO; +metroNIDAZOLE 500 MG in IV 1 EA IV ONE
[2022-01-18] MEDS ORDERED: LR 1,000 ML IV SCH ×2 (11:50→16:35)
[2022-01-18] MEDS ORDERED: FAMO40TA3 PO (11:59)
[2022-01-18] MEDS ORDERED: PHEN-501 (11:59)
[2022-01-18] MEDS ORDERED: SCOPOLAMINE 1MG TRANSDERMAL PATCH TOP ONE (12:40)
[2022-01-18 13:01] LABS: HEMATOCRIT 37.7 % (36.0-47.0); HEMOGLOBIN 12.4 g/dl (12.0-15.5); MEAN CORPUSCULAR HEMOGLOBIN 31.5 pg (27.0-33.0); MEAN CORPUSCULAR HGB CONC 32.9 g/dl (32.0-36.5); MEAN CORPUSCULAR VOLUME 95.7 fl (80.0-96.0); PLATELET COUNT, AUTOMATED 191 10^3/uL (150-450); RED BLOOD COUNT 3.94 10^6/uL (4.00-5.40); WHITE BLOOD COUNT 6.1 10^3/uL (4.0-10.0)
[2022-01-18] MEDS ORDERED: BUPIVACAINE HCL 0.25% 30ML VIAL As Ordered ONE (13:43)
[2022-01-18] MEDS ORDERED: SUGAMMADEX SODIUM 500 MG/5 ML VIAL (BRIDION) As Ordered ONE (13:52)
[2022-01-18] MEDS ORDERED: propofoL 200 MG/20 ML VIAL As Ordered ONE (13:52)
[2022-01-18] MEDS ORDERED: METOCLOPRAMIDE INJ 10MG/2ML VIAL As Ordered ONE (13:52)
[2022-01-18] MEDS ORDERED: fentaNYL 250 MCG/5 ML INJECTION As Ordered ONE (13:52)
[2022-01-18] MEDS ORDERED: HYDROmorphone HCL 2MG/ML 1ML VIAL As Ordered ONE (13:52)
[2022-01-18] MEDS ORDERED: LIDOCAINE 2% 100MG/5ML SDV (FOR ANES.) As Ordered ONE (13:52)
[2022-01-18] MEDS ORDERED: MIDAZOLAM INJ 2MG/2ML VIAL (J2250 PER 1MG) As Ordered ONE (13:52)
[2022-01-18] MEDS ORDERED: ONDANSETRON 4MG 2ML VIAL As Ordered ONE (13:52)
[2022-01-18] MEDS ORDERED: KETOROLAC 60MG 2ML VIAL As Ordered ONE (13:52)
[2022-01-18] MEDS ORDERED: ROCURONIUM BROMIDE 50MG/5ML VIAL As Ordered ONE (13:52)
[2022-01-18] MEDS ORDERED: PHENYLephrine 500MCG 5ML (100MCG/ML) SYRINGE As Ordered ONE (14:32)
[2022-01-18] MEDS ORDERED: LACRILUBE (AKWA TEARS) OPHTH OINT 3.5GM As Ordered ONE (14:53)
[2022-01-18] MEDS ORDERED: GLYCOPYRROLATE INJ 0.2 MG/ML 2 ML VIAL As Ordered ONE (15:12)
[2022-01-18] MEDS ORDERED: ACETAMINOPHEN 1000MG 100ML IV BAG IV ONE (16:35)
[2022-01-18] MEDS ORDERED: ONDANSETRON 4MG 2ML VIAL IV PRN (16:35)
[2022-01-18] MEDS: oxyCODONE 5MG TAB PO PRN ×2 (16:47→17:17)
[2022-01-18] MEDS: fentaNYL 100 MCG/2 ML INJECTION IV PRN ×4 (16:47→17:04)
[2022-01-18] MEDS: MORPHINE 2 MG/ML 1ML VIAL IV PRN ×2 (17:14→17:21)
[2022-01-18] MEDS ORDERED: METOCLOPRAMIDE INJ 10MG/2ML VIAL IV STA (19:34)
[2022-01-18 20:20] VITALS: BP 153/75
== END 2022-01-18 20:29 | disposition home or self-care (01) ==
LOC: M SDC 11:08
PROVIDERS: ATTEND Obstetrics & Gynecology
DX: N84.0 Polyp of corpus uteri (principal); N80.00 Endometriosis of the uterus, unspecified; N72 Inflammatory disease of cervix uteri; I48.91 Unspecified atrial fibrillation; I10 Essential (primary) hypertension; E11.9 Type 2 diabetes mellitus without complications; E03.9 Hypothyroidism, unspecified; K21.9 Gastro-esophageal reflux disease without esophagitis; Z88.0 Allergy status to penicillin; Z88.8 Allergy status to other drugs, medicaments and biological substances; Z91.040 Latex allergy status; Z87.891 Personal history of nicotine dependence; F41.9 Anxiety disorder, unspecified; J44.9 Chronic obstructive pulmonary disease, unspecified; G47.30 Sleep apnea, unspecified; Z79.01 Long term (current) use of anticoagulants; Z79.84 Long term (current) use of oral hypoglycemic drugs; Z79.51 Long term (current) use of inhaled steroids; Z79.899 Other long term (current) drug therapy
CPT/HCPCS: 36415; 58571; 85027; 86850; 86900; 86901; 88307; J0131; J0744; J1100; J1170; J1885; J2250; J2270; J2370; J2405; J2765; J3010; S2900

== ENCOUNTER 2022-01-24 16:17 | Emergency (ER) | payer MEDICARE, OTHER ==
[~2022-01-24] VITALS: Ht 167.6 cm; Wt 109.6 kg
[~2022-01-24 16:17] MED LIST changes: -CIPROFLOXACIN 400 MG in IV 1 EA IV ONE; +PHEN-501; -metroNIDAZOLE 500 MG in IV 1 EA IV ONE
[2022-01-24] MEDS ORDERED: OXYC1TAB23 (16:48)
[2022-01-24] MEDS ORDERED: ONDANSETRON 4MG ORAL DISINTEGRATING TAB PO ONE (18:55)
[2022-01-24 19:28] LABS: BASO % 0.1 % (0.0-1.0); EOS % 0.4 % (0.0-3.0); HEMATOCRIT 40.2 % (36.0-47.0); HEMOGLOBIN 13.4 g/dl (12.0-15.5); LYMPH # 0.9 10^3/uL (1.5-5.0); LYMPH % 10.5 % (24.0-44.0); MEAN CORPUSCULAR HEMOGLOBIN 31.8 pg (27.0-33.0); MEAN CORPUSCULAR HGB CONC 33.3 g/dl (32.0-36.5); MEAN CORPUSCULAR VOLUME 95.3 fl (80.0-96.0); MONO # 0.5 10^3/uL (0.0-0.8); MONO % 5.3 % (2.0-8.0); NEUTROPHILS % 83.2 % (36.0-66.0); PLATELET COUNT, AUTOMATED 256 10^3/uL (150-450); RED BLOOD COUNT 4.22 10^6/uL (4.00-5.40); WHITE BLOOD COUNT 8.5 10^3/uL (4.0-10.0)
[2022-01-24 20:10] LABS: ALBUMIN 3.5 GM/DL (3.2-5.2); ALT/SGPT 119 U/L (12-78); BILIRUBIN,DIRECT 1.2 MG/DL (0.0-0.2); BILIRUBIN,TOTAL 1.9 MG/DL (0.2-1.0); BLOOD UREA NITROGEN 11 MG/DL (7-18); CALCIUM LEVEL 9.9 MG/DL (8.8-10.2); CARBON DIOXIDE LEVEL 30 MEQ/L (21-32); CHLORIDE LEVEL 103 MEQ/L (98-107); CREATININE FOR GFR 0.78 MG/DL (0.55-1.30); GLOMERULAR FILTRATION RATE > 60.0 (>45); GLUCOSE, FASTING 115 MG/DL (70-100); LIPASE 4864 U/L (73-393); POTASSIUM SERUM 4.7 MEQ/L (3.5-5.1); SODIUM LEVEL 138 MEQ/L (136-145); TOTAL PROTEIN 6.9 GM/DL (6.4-8.2)
[2022-01-24] MEDS ORDERED: NS 1,000 ML IV ONE (20:30)
[2022-01-24] MEDS ORDERED: PROMETHAZINE 25MG/ML 1ML VIAL IV ONE (20:30)
[2022-01-24] MEDS ORDERED: CIPROFLOXACIN 400 MG in IV 1 EA IV ONE (20:30)
[2022-01-24] MEDS ORDERED: metroNIDAZOLE 500 MG in IV 1 EA IV ONE (20:30)
[2022-01-24] MEDS ORDERED: ISOVUE-370 76% 100ML VIAL As Ordered ONE (22:05)
[2022-01-24] MEDS ORDERED: MORPHINE 4 MG/ML 1ML VIAL/SYRINGE IV ONE (22:55)
[2022-01-25 00:57] LABS: BASO % 0.1 % (0.0-1.0); EOS # 0.1 10^3/uL (0.0-0.5); EOS % 0.6 % (0.0-3.0); LYMPH # 1.1 10^3/uL (1.5-5.0); LYMPH % 10.8 % (24.0-44.0); MONO # 0.6 10^3/uL (0.0-0.8); MONO % 5.8 % (2.0-8.0); NEUTROPHILS # 8.2 10^3/uL (1.5-8.5); NEUTROPHILS % 82.3 % (36.0-66.0); WHITE BLOOD COUNT 9.9 10^3/uL (4.0-10.0)
[2022-01-25 01:14] VITALS: BP 139/60
[2022-01-25 01:42] LABS: ALBUMIN 2.8 GM/DL (3.2-5.2); BILIRUBIN,DIRECT 0.6 MG/DL (0.0-0.2); BILIRUBIN,TOTAL 0.9 MG/DL (0.2-1.0); TOTAL PROTEIN 5.8 GM/DL (6.4-8.2)
[2022-01-25] MEDS ORDERED: HYDR-4571 PO (02:19)
[2022-01-25] MEDS ORDERED: ONDA4TAB6 PO (02:19)
== END 2022-01-25 02:52 | disposition home or self-care (01) ==
LOC: M ED 16:17
DX: K85.90 Acute pancreatitis without necrosis or infection, unspecified (principal); K76.0 Fatty (change of) liver, not elsewhere classified; K80.20 Calculus of gallbladder without cholecystitis without obstruction; I48.91 Unspecified atrial fibrillation; J44.9 Chronic obstructive pulmonary disease, unspecified; G47.33 Obstructive sleep apnea (adult) (pediatric); Z90.710 Acquired absence of both cervix and uterus; Z90.89 Acquired absence of other organs; Z79.01 Long term (current) use of anticoagulants; E66.9 Obesity, unspecified; Z88.0 Allergy status to penicillin; Z88.1 Allergy status to other antibiotic agents; Z88.6 Allergy status to analgesic agent; Z88.8 Allergy status to other drugs, medicaments and biological substances; Z91.040 Latex allergy status
CPT/HCPCS: 36415; 74177; 76705; 80048; 80076; 83605; 83690; 85025; 87635; 96365; 96367; 96375; 99284; J0744; J2270; J2550; Q9967

== ENCOUNTER → 2022-04-13 | Outpatient (CLI) | payer MEDICARE, OTHER ==
[~2022-04-13] MED LIST changes: +HYDR-4571 PO; +ONDA4TAB6 PO; +OXYC1TAB23
== END ==
LOC: M PLALAB 14:11
PROVIDERS: ATTEND Student in an Organized Health Care Education/Training Program
DX: J40 Bronchitis, not specified as acute or chronic (principal)

== ENCOUNTER → 2022-05-09 | Outpatient (CLI) | payer MEDICARE, OTHER ==
[2022-05-09 16:45] LABS: HEMATOCRIT 40.4 % (36.0-47.0); HEMOGLOBIN 12.8 g/dl (12.0-15.5); MEAN CORPUSCULAR HEMOGLOBIN 30.8 pg (27.0-33.0); MEAN CORPUSCULAR HGB CONC 31.7 g/dl (32.0-36.5); MEAN CORPUSCULAR VOLUME 97.1 fl (80.0-96.0); PLATELET COUNT, AUTOMATED 308 10^3/uL (150-450); RED BLOOD COUNT 4.16 10^6/uL (4.00-5.40); WHITE BLOOD COUNT 6.6 10^3/uL (4.0-10.0)
[2022-05-09 16:53] LABS: LIPASE 35 U/L (12-53)
[2022-05-09 16:54] LABS: AMYLASE 38 U/L (30-118)
[2022-05-09 16:56] LABS: ALKALINE PHOSPHATASE 117 U/L (46-116); ALT/SGPT 20 U/L (7.0-40); AST/SGOT 23 U/L (<34); BILIRUBIN,TOTAL 0.5 MG/DL (0.3-1.2); BLOOD UREA NITROGEN 11 MG/DL (9-23); CALCIUM LEVEL 8.8 MG/DL (8.3-10.6); CARBON DIOXIDE LEVEL 33 MMOL/L (20-31); CHLORIDE LEVEL 100 MMOL/L (98-107); CREATININE FOR GFR 0.78 MG/DL (0.55-1.30); GLOMERULAR FILTRATION RATE > 60.0 (>45); GLUCOSE, FASTING 92 MG/DL (74-106); POTASSIUM SERUM 4.8 MMOL/L (3.5-5.1); SODIUM LEVEL 139 MMOL/L (136-145); TOTAL PROTEIN 6.3 G/DL (5.7-8.2)
== END ==
LOC: M PLALAB 11:00
PROVIDERS: ATTEND Physician Assistant Medical
DX: R10.10 Upper abdominal pain, unspecified (principal)

== ENCOUNTER → 2022-06-14 | Outpatient (CLI) | payer MEDICARE, OTHER ==
[~2022-06-14] MED LIST changes: +FAMO20TA PO; +METO1TAB87 PO; +ZINC220T3 PO
== END ==
LOC: M LABSMTC 11:44
PROVIDERS: ATTEND Anesthesiology
DX: Z01.818 Encounter for other preprocedural examination (principal); Z11.52 Encounter for screening for COVID-19

== ENCOUNTER 2022-06-19 08:36 | Day surgery (SDC) | payer MEDICARE, OTHER ==
[~2022-06-19] VITALS: Ht 165.1 cm; Wt 108.4 kg
[~2022-06-19 08:36] MED LIST changes: +NS 1,000 ML IV ONE
[2022-06-19] MEDS ORDERED: LIDOCAINE 2% 100MG/5ML SDV (FOR ANES.) As Ordered ONE (09:15)
[2022-06-19] MEDS ORDERED: propofoL 200 MG/20 ML VIAL As Ordered ONE (09:15)
[2022-06-19] MEDS ORDERED: fentaNYL 100 MCG/2 ML INJECTION As Ordered ONE (09:15)
[2022-06-19 11:30] VITALS: BP 157/87
== END 2022-06-19 12:05 | disposition home or self-care (01) ==
LOC: M OPP 08:36
PROVIDERS: ATTEND Internal Medicine Gastroenterology
DX: K63.5 Polyp of colon (principal); K57.30 Diverticulosis of large intestine without perforation or abscess without bleeding; K64.8 Other hemorrhoids; R19.5 Other fecal abnormalities; K29.70 Gastritis, unspecified, without bleeding; I48.91 Unspecified atrial fibrillation; E11.9 Type 2 diabetes mellitus without complications; G47.33 Obstructive sleep apnea (adult) (pediatric); N39.498 Other specified urinary incontinence; Z79.01 Long term (current) use of anticoagulants; Z79.52 Long term (current) use of systemic steroids; Z79.84 Long term (current) use of oral hypoglycemic drugs; Z79.890 Hormone replacement therapy; Z79.899 Other long term (current) drug therapy; Z88.1 Allergy status to other antibiotic agents; Z88.6 Allergy status to analgesic agent; Z88.8 Allergy status to other drugs, medicaments and biological substances
CPT/HCPCS: 43239; 45385; 88305; J3010

== ENCOUNTER → 2022-07-25 | Outpatient (CLI) | payer OTHER ==
[~2022-07-25] MED LIST changes: -NS 1,000 ML IV ONE
== END ==
LOC: M PAIN 10:00
PROVIDERS: ATTEND Nurse Practitioner Family
DX: M79.12 Myalgia of auxiliary muscles, head and neck (principal); I11.0 Hypertensive heart disease with heart failure; I50.9 Heart failure, unspecified; E66.01 Morbid (severe) obesity due to excess calories; Z68.41 Body mass index [BMI] 40.0-44.9, adult; I48.0 Paroxysmal atrial fibrillation; E03.9 Hypothyroidism, unspecified; J45.909 Unspecified asthma, uncomplicated; E11.9 Type 2 diabetes mellitus without complications; Z87.891 Personal history of nicotine dependence; Z79.01 Long term (current) use of anticoagulants; Z79.891 Long term (current) use of opiate analgesic; Z79.890 Hormone replacement therapy; Z79.84 Long term (current) use of oral hypoglycemic drugs; Z79.899 Other long term (current) drug therapy; Z88.0 Allergy status to penicillin; Z88.8 Allergy status to other drugs, medicaments and biological substances

== ENCOUNTER → 2022-09-14 | Outpatient (CLI) | payer OTHER ==
[~2022-09-14] MED LIST changes: +NORCO, ANEXSIA 5/325MG TABLET (HYDROcodone/ACETAMINOPHEN) As Ordered ONE; +TRIAMCINOLONE ACETONIDE SUSP 40MG/ML 1ML VIAL As Ordered ONE; +diazePAM 2 MG TAB As Ordered ONE
== END ==
LOC: M PAIN 13:30
PROVIDERS: ATTEND Anesthesiology
DX: M79.18 Myalgia, other site (principal); M79.12 Myalgia of auxiliary muscles, head and neck; E66.01 Morbid (severe) obesity due to excess calories; Z68.41 Body mass index [BMI] 40.0-44.9, adult; I11.0 Hypertensive heart disease with heart failure; I50.9 Heart failure, unspecified; I48.0 Paroxysmal atrial fibrillation; E03.9 Hypothyroidism, unspecified; J45.909 Unspecified asthma, uncomplicated; J45.20 Mild intermittent asthma, uncomplicated; E11.9 Type 2 diabetes mellitus without complications; H91.93 Unspecified hearing loss, bilateral; Z97.4 Presence of external hearing-aid; Z87.891 Personal history of nicotine dependence; Z88.0 Allergy status to penicillin; Z88.8 Allergy status to other drugs, medicaments and biological substances; Z91.040 Latex allergy status; Z79.01 Long term (current) use of anticoagulants; Z79.84 Long term (current) use of oral hypoglycemic drugs; Z79.899 Other long term (current) drug therapy
CPT/HCPCS: 20553; J3301; S0020

== ENCOUNTER 2022-09-20 11:18 | Emergency (ER) | payer MEDICARE, OTHER ==
[~2022-09-20] VITALS: Ht 160 cm; Wt 110.5 kg
[~2022-09-20 11:18] MED LIST changes: -NORCO, ANEXSIA 5/325MG TABLET (HYDROcodone/ACETAMINOPHEN) As Ordered ONE; -TRIAMCINOLONE ACETONIDE SUSP 40MG/ML 1ML VIAL As Ordered ONE; -diazePAM 2 MG TAB As Ordered ONE
[2022-09-20] MEDS ORDERED: ONDA4TAB6 PO ×2 (11:27→18:39)
[2022-09-20] MEDS ORDERED: MORPHINE 4 MG/ML 1ML VIAL IV ONE ×2 (12:00→16:35)
[2022-09-20] MEDS ORDERED: ONDANSETRON 4MG 2ML VIAL IV ONE ×2 (12:00→16:00)
[2022-09-20 13:07] LABS: BASO % 0.2 % (0.0-1.0); EOS # 0.1 10^3/uL (0.0-0.5); EOS % 0.4 % (0.0-3.0); HEMATOCRIT 43.7 % (36.0-47.0); HEMOGLOBIN 14.1 g/dl (12.0-15.5); LYMPH # 1.4 10^3/uL (1.5-5.0); LYMPH % 11.5 % (24.0-44.0); MEAN CORPUSCULAR HEMOGLOBIN 30.4 pg (27.0-33.0); MEAN CORPUSCULAR HGB CONC 32.3 g/dl (32.0-36.5); MEAN CORPUSCULAR VOLUME 94.2 fl (80.0-96.0); MONO # 0.8 10^3/uL (0.0-0.8); MONO % 6.8 % (2.0-8.0); NEUTROPHILS # 9.9 10^3/uL (1.5-8.5); NEUTROPHILS % 80.7 % (36.0-66.0); PLATELET COUNT, AUTOMATED 224 10^3/uL (150-450); RED BLOOD COUNT 4.64 10^6/uL (4.00-5.40); WHITE BLOOD COUNT 12.3 10^3/uL (4.0-10.0)
[2022-09-20 13:22] LABS: ALBUMIN 3.9 G/DL (3.2-5.2); BILIRUBIN,DIRECT 0.6 MG/DL (<0.4); BILIRUBIN,TOTAL 1.1 MG/DL (0.3-1.2); TOTAL PROTEIN 6.8 G/DL (5.7-8.2)
[2022-09-20 13:24] LABS: BLOOD UREA NITROGEN 18 MG/DL (9-23); CALCIUM LEVEL 10.1 MG/DL (8.3-10.6); CARBON DIOXIDE LEVEL 33 MMOL/L (20-31); CHLORIDE LEVEL 101 MMOL/L (98-107); CK-MB VALUE MASS < 1.0 NG/ML (<3.6); CPK CREATINE PHOSPHOKINASE 48 U/L (34-145); GLOMERULAR FILTRATION RATE > 60.0 (>45); GLUCOSE, FASTING 94 MG/DL (74-106); INR 1.1; MB/CK RELATIVE INDEX 2.08 (< OR =4); POTASSIUM SERUM 3.9 MMOL/L (3.5-5.1); PROTHROMBIN TIME 14.4 SECONDS (12.5-14.5); SODIUM LEVEL 139 MMOL/L (136-145)
[2022-09-20 13:25] LABS: PARTIAL THROMBOPLASTIN TIME 29.7 SECONDS (24.8-34.2)
[2022-09-20] MEDS ORDERED: ISOVUE-370 76% 100ML VIAL As Ordered ONE (14:09)
[2022-09-20 14:11] LABS: RSV AMPLIFICATION NEGATIVE (NEGATIVE)
[2022-09-20] MEDS ORDERED: CHLORTHALIDONE 25 MG TAB PO ONE (17:20)
[2022-09-20] MEDS ORDERED: METOPROLOL TART 50 MG TAB PO ONE (17:20)
[2022-09-20] MEDS ORDERED: SPIRONOLACTONE 50 MG TAB PO ONE (17:20)
[2022-09-20 17:25] VITALS: BP 156/70; TEMP 97; O2SAT 94
== END 2022-09-20 18:56 | disposition home or self-care (01) ==
LOC: M ED 11:18
DX: R10.13 Epigastric pain (principal); R11.10 Vomiting, unspecified; I48.91 Unspecified atrial fibrillation; I50.20 Unspecified systolic (congestive) heart failure; E11.9 Type 2 diabetes mellitus without complications; I10 Essential (primary) hypertension; J44.9 Chronic obstructive pulmonary disease, unspecified; Z88.6 Allergy status to analgesic agent; Z88.0 Allergy status to penicillin; Z91.040 Latex allergy status; Z79.01 Long term (current) use of anticoagulants; Z79.899 Other long term (current) drug therapy; Z79.51 Long term (current) use of inhaled steroids
CPT/HCPCS: 71046; 74177; 76705; 80047; 80048; 80076; 81001; 82550; 82553; 83605; 83690; 84484; 85025; 85610; 85730; 87631; 93005; 93041; 96374; 96375; 96376; 99284; J2405; Q9967

== ENCOUNTER → 2022-10-17 | Outpatient (CLI) | payer OTHER | LOC: M PAIN 14:45 | PROVIDERS: ATTEND Nurse Practitioner Family | DX: M50.10 Cervical disc disorder with radiculopathy, unspecified cervical region (principal); G89.29 Other chronic pain; M25.512 Pain in left shoulder; I11.0 Hypertensive heart disease with heart failure; I50.9 Heart failure, unspecified; E66.01 Morbid (severe) obesity due to excess calories; I48.0 Paroxysmal atrial fibrillation; E03.9 Hypothyroidism, unspecified; J45.20 Mild intermittent asthma, uncomplicated; E11.9 Type 2 diabetes mellitus without complications; H91.93 Unspecified hearing loss, bilateral; Z97.4 Presence of external hearing-aid; Z68.41 Body mass index [BMI] 40.0-44.9, adult; Z87.891 Personal history of nicotine dependence; Z79.891 Long term (current) use of opiate analgesic; Z79.84 Long term (current) use of oral hypoglycemic drugs; Z79.01 Long term (current) use of anticoagulants; Z79.890 Hormone replacement therapy; Z79.899 Other long term (current) drug therapy; Z88.0 Allergy status to penicillin; Z88.8 Allergy status to other drugs, medicaments and biological substances; Z91.040 Latex allergy status ==

== ENCOUNTER → 2022-12-12 | Outpatient (CLI) | payer OTHER ==
[~2022-12-12] MED LIST changes: +LORA-1041 PO; -LORA-674 PO
== END ==
LOC: M WHC 13:27
PROVIDERS: ATTEND Student in an Organized Health Care Education/Training Program
DX: Z12.31 Encounter for screening mammogram for malignant neoplasm of breast (principal)

== ENCOUNTER → 2023-01-12 | Outpatient (CLI) | payer OTHER ==
[2023-01-12 11:53] LABS: BLOOD UREA NITROGEN 16 MG/DL (9-23); CALCIUM LEVEL 9.1 MG/DL (8.3-10.6); CARBON DIOXIDE LEVEL 34 MMOL/L (20-31); CHLORIDE LEVEL 98 MMOL/L (98-107); CREATININE FOR GFR 0.94 MG/DL (0.55-1.30); GLOMERULAR FILTRATION RATE > 60.0 (>45); GLUCOSE, FASTING 102 MG/DL (74-106); POTASSIUM SERUM 3.9 MMOL/L (3.5-5.1); SODIUM LEVEL 137 MMOL/L (136-145)
== END ==
LOC: M LAB 10:50
PROVIDERS: ATTEND Nurse Practitioner Family
DX: E87.6 Hypokalemia (principal)

== ENCOUNTER → 2023-01-15 | Outpatient (CLI) | payer OTHER | LOC: M PLAIMG 10:52 | PROVIDERS: ATTEND Nurse Practitioner Family | DX: M54.12 Radiculopathy, cervical region (principal) ==

== ENCOUNTER → 2023-01-22 | Outpatient (CLI) | payer OTHER, MEDICAID | LOC: M PAIN 14:00 | PROVIDERS: ATTEND Nurse Practitioner Family | DX: M50.10 Cervical disc disorder with radiculopathy, unspecified cervical region (principal); G89.29 Other chronic pain; I11.0 Hypertensive heart disease with heart failure; I50.9 Heart failure, unspecified; E66.01 Morbid (severe) obesity due to excess calories; I48.0 Paroxysmal atrial fibrillation; E03.9 Hypothyroidism, unspecified; J45.20 Mild intermittent asthma, uncomplicated; E11.9 Type 2 diabetes mellitus without complications; H91.93 Unspecified hearing loss, bilateral; Z97.4 Presence of external hearing-aid; Z87.891 Personal history of nicotine dependence; Z68.41 Body mass index [BMI] 40.0-44.9, adult; Z79.891 Long term (current) use of opiate analgesic; Z79.84 Long term (current) use of oral hypoglycemic drugs; Z79.899 Other long term (current) drug therapy; Z79.890 Hormone replacement therapy; Z88.0 Allergy status to penicillin; Z88.8 Allergy status to other drugs, medicaments and biological substances; Z91.040 Latex allergy status ==

== ENCOUNTER → 2023-02-05 | Outpatient (CLI) | payer OTHER, MEDICAID ==
[2023-02-05 16:27] LABS: BLOOD UREA NITROGEN 18 MG/DL (9-23); CARBON DIOXIDE LEVEL 35 MMOL/L (20-31); CHLORIDE LEVEL 98 MMOL/L (98-107); CREATININE FOR GFR 0.94 MG/DL (0.55-1.30); GLOMERULAR FILTRATION RATE > 60.0 (>45); GLUCOSE, FASTING 90 MG/DL (74-106); POTASSIUM SERUM 3.8 MMOL/L (3.5-5.1); SODIUM LEVEL 138 MMOL/L (136-145)
== END ==
LOC: M PLALAB 12:07
PROVIDERS: ATTEND Nurse Practitioner Family
DX: I10 Essential (primary) hypertension (principal)

== ENCOUNTER → 2023-05-02 | Outpatient (RCR) | payer MEDICAID, MEDICARE, OTHER ==
[~2023-05-02] MED LIST changes: +DICL20GE TOP; +FLUT1BLS8 IH; +KP V1TAB2 PO; +MENT118S2 TOP; +PANT40TA29 PO; +TORS20TA2 PO; +VITA250T4 PO
== END | disposition still patient (30) ==
LOC: M PT 04-24 14:01
PROVIDERS: ATTEND Nurse Practitioner Family
DX: I89.0 Lymphedema, not elsewhere classified (principal)

== ENCOUNTER → 2023-05-24 | Outpatient (CLI) | payer MEDICARE | LOC: M WHC 10:58 | PROVIDERS: ATTEND Student in an Organized Health Care Education/Training Program | DX: Z13.820 Encounter for screening for osteoporosis (principal); M81.0 Age-related osteoporosis without current pathological fracture ==

== ENCOUNTER 2023-05-28 12:37 | Outpatient (RCR) | payer MEDICARE | END 2023-05-31 | LOC: M PT 12:37 | PROVIDERS: ATTEND Nurse Practitioner Family | DX: I89.0 Lymphedema, not elsewhere classified (principal) ==

== ENCOUNTER 2023-05-30 10:01 | Day surgery (SDC) | payer MEDICARE ==
[~2023-05-30] VITALS: Ht 160 cm; Wt 110.0 kg
[~2023-05-30 10:01] MED LIST changes: +CelecoXIB 400 MG CAP PO ONE; +INDOCYANINE GREEN 25MG VIAL (IC-GREEN) IV ONE; +KETOROLAC 60MG 2ML VIAL As Ordered ONE; +LIDOCAINE 2% 100MG/5ML SDV (FOR ANES.) As Ordered ONE; +MIDAZOLAM INJ 2MG/2ML VIAL As Ordered ONE; +ONDANSETRON 4MG 2ML VIAL As Ordered ONE; +ROCURONIUM BROMIDE 50MG/5ML VIAL As Ordered ONE; +SUGAMMADEX SODIUM 500 MG/5 ML VIAL (BRIDION) As Ordered ONE; +fentaNYL 100 MCG/2 ML INJECTION As Ordered ONE; +propofoL 200 MG/20 ML VIAL As Ordered ONE
[2023-05-30 11:07] LABS: ALBUMIN 3.8 G/DL (3.2-5.2); BILIRUBIN,TOTAL 1.2 MG/DL (0.3-1.2); CALCIUM LEVEL 9.8 MG/DL (8.3-10.6); CREATININE FOR GFR 1.14 MG/DL (0.55-1.30); GLOMERULAR FILTRATION RATE 50.9 (>45); POTASSIUM SERUM 3.5 MMOL/L (3.5-5.1); TOTAL PROTEIN 6.8 G/DL (5.7-8.2)
[2023-05-30] MEDS ORDERED: LR 1,000 ML IV SCH ×2 (11:10→13:20)
[2023-05-30] MEDS ORDERED: DEXTROSE 50% 50ML SYRINGE IV PRN (11:10)
[2023-05-30] MEDS ORDERED: INSULIN LISPRO (NovoLOG) PER UNIT SC PRN (11:10)
[2023-05-30] MEDS ORDERED: GLUCOSE 4GM CHEW TABLET PO PRN (11:10)
[2023-05-30] MEDS ORDERED: GLUCAGON INJ 1MG VIAL SC PRN (11:10)
[2023-05-30] MEDS: ceFAZolin SOD 2 GM in IV 1 EA IV ONE (11:55)
[2023-05-30] MEDS: SCOPOLAMINE 1MG TRANSDERMAL PATCH As Ordered ONE (11:59)
[2023-05-30] MEDS: INDOCYANINE GREEN 25MG VIAL (IC-GREEN) As Ordered ONE (12:16)
[2023-05-30] MEDS ORDERED: ePHEDrine SULFATE 25 MG/5 ML(5MG/ML) SYRINGE As Ordered ONE (12:23)
[2023-05-30] MEDS ORDERED: ACETAMINOPHEN 1000MG 100ML IV BAG As Ordered ONE (12:27)
[2023-05-30] MEDS ORDERED: GLYCOPYRROLATE INJ 0.2 MG/ML 2 ML VIAL As Ordered ONE (12:34)
[2023-05-30] MEDS: LIDOCAINE 1% SDV 30ML VIAL As Ordered ONE (13:09)
[2023-05-30] MEDS ORDERED: fentaNYL 100 MCG/2 ML INJECTION IV PRN (13:20)
[2023-05-30] MEDS: HYDROMORPHONE HCL 0.5 MG/ 0.5 ML SYRINGE IV PRN (13:33)
[2023-05-30] MEDS: oxyCODONE 5MG TAB PO PRN (13:33)
[2023-05-30] MEDS ORDERED: NORCO, ANEXSIA 5/325MG TABLET (HYDROcodone/ACETAMINOPHEN) PO PRN ×2 (13:45)
[2023-05-30] MEDS ORDERED: ONDANSETRON 4MG 2ML VIAL IV PRN (13:45)
[2023-05-30] MEDS: ONDANSETRON 4MG 2ML VIAL IV PRN (13:59)
[2023-05-30 14:50] VITALS: BP 118/56; TEMP 97.4; O2SAT 96
[2023-05-30] MEDS ORDERED: KETOROLAC 30 MG/ML 1ML VIAL IV SCH (15:00)
== END 2023-05-30 15:05 | disposition home or self-care (01) ==
LOC: M SDC 10:01
PROVIDERS: ATTEND Surgery
DX: K80.10 Calculus of gallbladder with chronic cholecystitis without obstruction (principal); K82.1 Hydrops of gallbladder; E66.01 Morbid (severe) obesity due to excess calories; Z68.41 Body mass index [BMI] 40.0-44.9, adult; K76.0 Fatty (change of) liver, not elsewhere classified; R16.0 Hepatomegaly, not elsewhere classified; I48.0 Paroxysmal atrial fibrillation; E11.9 Type 2 diabetes mellitus without complications; I50.9 Heart failure, unspecified; I11.0 Hypertensive heart disease with heart failure; G47.30 Sleep apnea, unspecified; Z88.0 Allergy status to penicillin; Z88.8 Allergy status to other drugs, medicaments and biological substances; Z91.040 Latex allergy status; Z79.899 Other long term (current) drug therapy; Z79.01 Long term (current) use of anticoagulants; Z87.891 Personal history of nicotine dependence
CPT/HCPCS: 36415; 47563; 64488; 80053; 88304; J0131; J0665; J0690; J1170; J2250; J2405; J3010; Q9968; S2900

== ENCOUNTER → 2023-08-02 | Outpatient (CLI) | payer MEDICARE ==
[~2023-08-02] MED LIST changes: -CelecoXIB 400 MG CAP PO ONE; +DOXY-440 PO; -DOXY-444 PO; -INDOCYANINE GREEN 25MG VIAL (IC-GREEN) IV ONE; -KETOROLAC 60MG 2ML VIAL As Ordered ONE; -LIDOCAINE 2% 100MG/5ML SDV (FOR ANES.) As Ordered ONE; -MIDAZOLAM INJ 2MG/2ML VIAL As Ordered ONE; -ONDANSETRON 4MG 2ML VIAL As Ordered ONE; -ROCURONIUM BROMIDE 50MG/5ML VIAL As Ordered ONE; -SUGAMMADEX SODIUM 500 MG/5 ML VIAL (BRIDION) As Ordered ONE; +VITA250T27 PO; -VITA250T4 PO; -fentaNYL 100 MCG/2 ML INJECTION As Ordered ONE; -propofoL 200 MG/20 ML VIAL As Ordered ONE
== END ==
LOC: M PAIN 15:00
PROVIDERS: ATTEND Nurse Practitioner Family
DX: M50.10 Cervical disc disorder with radiculopathy, unspecified cervical region (principal); I11.0 Hypertensive heart disease with heart failure; I50.9 Heart failure, unspecified; E66.01 Morbid (severe) obesity due to excess calories; I48.0 Paroxysmal atrial fibrillation; E03.9 Hypothyroidism, unspecified; J45.20 Mild intermittent asthma, uncomplicated; E11.9 Type 2 diabetes mellitus without complications; H91.93 Unspecified hearing loss, bilateral; Z97.4 Presence of external hearing-aid; Z68.41 Body mass index [BMI] 40.0-44.9, adult; Z87.891 Personal history of nicotine dependence; Z79.891 Long term (current) use of opiate analgesic; Z79.01 Long term (current) use of anticoagulants; Z79.890 Hormone replacement therapy; Z79.899 Other long term (current) drug therapy; Z79.84 Long term (current) use of oral hypoglycemic drugs; Z88.0 Allergy status to penicillin; Z88.8 Allergy status to other drugs, medicaments and biological substances; Z91.040 Latex allergy status

== ENCOUNTER → 2023-09-14 | Outpatient (CLI) | payer MEDICARE ==
[~2023-09-14] MED LIST changes: +ONDA-282 PO; -ONDA4TAB6 PO
[2023-09-14 14:47] LABS: CREATININE FOR GFR 1.03 MG/DL (0.55-1.30); GLOMERULAR FILTRATION RATE 57.3 (>45); POTASSIUM SERUM 3.5 MMOL/L (3.5-5.1)
== END ==
LOC: M LAB 13:39
PROVIDERS: ATTEND Internal Medicine Cardiovascular Disease
DX: I10 Essential (primary) hypertension (principal)

== ENCOUNTER → 2023-11-06 | Outpatient (CLI) | payer MEDICARE ==
[~2023-11-06] MED LIST changes: +ISOVUE-M 300 61% 15ML VIAL As Ordered ONE; +LIDOCAINE 1% SDV 30ML VIAL As Ordered ONE; +NORCO, ANEXSIA 5/325MG TABLET (HYDROcodone/ACETAMINOPHEN) As Ordered ONE; +dexAMETHasone 10MG/1ML VIAL PRES.FREE As Ordered ONE; +diazePAM 2 MG TAB As Ordered ONE
== END ==
LOC: M PAIN 12:30
PROVIDERS: ATTEND Anesthesiology
DX: M50.13 Cervical disc disorder with radiculopathy, cervicothoracic region (principal); I11.0 Hypertensive heart disease with heart failure; I50.9 Heart failure, unspecified; G89.29 Other chronic pain; E66.01 Morbid (severe) obesity due to excess calories; I48.0 Paroxysmal atrial fibrillation; E03.9 Hypothyroidism, unspecified; J45.20 Mild intermittent asthma, uncomplicated; E11.9 Type 2 diabetes mellitus without complications; H91.93 Unspecified hearing loss, bilateral; Z87.891 Personal history of nicotine dependence; Z79.891 Long term (current) use of opiate analgesic; Z79.01 Long term (current) use of anticoagulants; Z79.899 Other long term (current) drug therapy; Z88.0 Allergy status to penicillin; Z88.8 Allergy status to other drugs, medicaments and biological substances; Z91.040 Latex allergy status; Z68.34 Body mass index [BMI] 34.0-34.9, adult
CPT/HCPCS: 62321; J1100; Q9967

== ENCOUNTER 2023-11-21 10:30 | Day surgery (SDC) | payer MEDICARE ==
[~2023-11-21] VITALS: Ht 167.6 cm; Wt 96.0 kg
[~2023-11-21 10:30] MED LIST changes: -ISOVUE-M 300 61% 15ML VIAL As Ordered ONE; -LIDOCAINE 1% SDV 30ML VIAL As Ordered ONE; -NORCO, ANEXSIA 5/325MG TABLET (HYDROcodone/ACETAMINOPHEN) As Ordered ONE; +PHENYLEPHRINE 10% OPHTH SOL 5ML OS PRN; +POTA-298 PO; -dexAMETHasone 10MG/1ML VIAL PRES.FREE As Ordered ONE; -diazePAM 2 MG TAB As Ordered ONE
[2023-11-21] MEDS ORDERED: MIDAZOLAM INJ 2MG/2ML VIAL As Ordered ONE (10:39)
[2023-11-21] MEDS ORDERED: fentaNYL 100 MCG/2 ML INJECTION As Ordered ONE (10:39)
[2023-11-21] MEDS: LIDOCAINE 3.5 % 1ML OPHTH TOPICAL GEL OU ONE (11:05)
[2023-11-21] MEDS: TROPICAMIDE 1% OPHTH SOLN 15ML OS SCH (11:05)
[2023-11-21] MEDS: OFLOXACIN 0.3 % (OCUFLOX) OPTH SOL 5ML OS ONE (11:05)
[2023-11-21] MEDS: PHENYLEPHRINE 2.5% OPHTH SOL 2ML OS SCH (11:05)
[2023-11-21] MEDS: ATROPINE SULFATE 1% OPHTH SOLN 2ML BTL OS SCH (11:05)
[2023-11-21] MEDS: BSS IRRIG/VANCO(10MG)/TOBRA(5MG)/EPINEPH(1:1000-0.5CC)500ML BAG-ORONLY As Ordered ONE (11:56)
[2023-11-21] MEDS: LIDOCAINE 1% SDV 5ML VIAL As Ordered ONE (11:56)
[2023-11-21] MEDS: CEFUROXIME 1MG/0.1ML INTRACAMERAL INJ As Ordered ONE (11:56)
[2023-11-21 12:10] VITALS: BP 123/60; TEMP 97.1; O2SAT 98
== END 2023-11-21 12:40 | disposition home or self-care (01) ==
LOC: M SDC 10:30
PROVIDERS: ATTEND Ophthalmology
DX: E11.36 Type 2 diabetes mellitus with diabetic cataract (principal); H25.12 Age-related nuclear cataract, left eye; I48.91 Unspecified atrial fibrillation; I10 Essential (primary) hypertension; E03.9 Hypothyroidism, unspecified; R32 Unspecified urinary incontinence; J44.89 Other specified chronic obstructive pulmonary disease; Z79.01 Long term (current) use of anticoagulants; Z79.51 Long term (current) use of inhaled steroids; Z79.899 Other long term (current) drug therapy; Z79.890 Hormone replacement therapy; Z88.8 Allergy status to other drugs, medicaments and biological substances; Z88.6 Allergy status to analgesic agent; Z88.0 Allergy status to penicillin; Z90.89 Acquired absence of other organs; Z90.710 Acquired absence of both cervix and uterus; Z90.49 Acquired absence of other specified parts of digestive tract; Z87.891 Personal history of nicotine dependence
CPT/HCPCS: 66984; J0697; J2250; J3010; V2632

== ENCOUNTER → 2023-12-11 | Outpatient (CLI) | payer MEDICARE ==
[~2023-12-11] MED LIST changes: -PHENYLEPHRINE 10% OPHTH SOL 5ML OS PRN
== END ==
LOC: M PAIN 11:00
PROVIDERS: ATTEND Nurse Practitioner Family
DX: G89.29 Other chronic pain (principal); M79.18 Myalgia, other site; I11.0 Hypertensive heart disease with heart failure; I50.9 Heart failure, unspecified; E66.01 Morbid (severe) obesity due to excess calories; I48.0 Paroxysmal atrial fibrillation; E03.9 Hypothyroidism, unspecified; J45.20 Mild intermittent asthma, uncomplicated; M54.2 Cervicalgia; H91.93 Unspecified hearing loss, bilateral; Z97.4 Presence of external hearing-aid; Z87.891 Personal history of nicotine dependence; Z88.0 Allergy status to penicillin; Z88.8 Allergy status to other drugs, medicaments and biological substances; Z91.040 Latex allergy status; Z68.34 Body mass index [BMI] 34.0-34.9, adult; Z79.01 Long term (current) use of anticoagulants; Z79.890 Hormone replacement therapy; Z79.899 Other long term (current) drug therapy

== ENCOUNTER 2023-12-17 19:30 | Emergency (ER) | payer MEDICARE ==
[~2023-12-17] VITALS: Ht 167.6 cm; Wt 91.8 kg
[2023-12-17 19:31] VITALS: BP 151/70; TEMP 97.4; O2SAT 96
== END 2023-12-17 22:42 | disposition left against medical advice (07) ==
LOC: M ED 19:30
DX: Z53.21 Procedure and treatment not carried out due to patient leaving prior to being seen by health care provider (principal)

== ENCOUNTER 2023-12-26 10:09 | Day surgery (SDC) | payer MEDICARE ==
[~2023-12-26] VITALS: Ht 165.1 cm; Wt 91.5 kg
[~2023-12-26 10:09] MED LIST changes: +MIDAZOLAM INJ 2MG/2ML VIAL As Ordered ONE; +PHENYLEPHRINE 10% OPHTH SOL 5ML OD PRN; +fentaNYL 100 MCG/2 ML INJECTION As Ordered ONE
[2023-12-26] MEDS: OFLOXACIN 0.3 % (OCUFLOX) OPTH SOL 5ML OD ONE (10:26)
[2023-12-26] MEDS: PHENYLEPHRINE 2.5% OPHTH SOL 2ML OD SCH (10:26)
[2023-12-26] MEDS: TROPICAMIDE 1% OPHTH SOLN 15ML OD SCH (10:26)
[2023-12-26] MEDS: ATROPINE SULFATE 1% OPHTH SOLN 2ML BTL OD SCH (10:26)
[2023-12-26] MEDS: LIDOCAINE 3.5 % 1ML OPHTH TOPICAL GEL OU ONE (10:27)
[2023-12-26] MEDS: LIDOCAINE 1% SDV 5ML VIAL As Ordered ONE (11:08)
[2023-12-26] MEDS: BSS IRRIG/VANCO(10MG)/TOBRA(5MG)/EPINEPH(1:1000-0.5CC)500ML BAG-ORONLY As Ordered ONE (11:09)
[2023-12-26] MEDS: CEFUROXIME 1MG/0.1ML INTRACAMERAL INJ As Ordered ONE (11:09)
[2023-12-26 11:18] VITALS: BP 109/52; TEMP 97.7; O2SAT 96
== END 2023-12-26 11:49 | disposition home or self-care (01) ==
LOC: M SDC 10:09
PROVIDERS: ATTEND Ophthalmology
DX: H25.11 Age-related nuclear cataract, right eye (principal); I48.91 Unspecified atrial fibrillation; I50.9 Heart failure, unspecified; E11.9 Type 2 diabetes mellitus without complications; Z88.0 Allergy status to penicillin; Z88.8 Allergy status to other drugs, medicaments and biological substances; Z91.040 Latex allergy status; Z79.899 Other long term (current) drug therapy; Z87.891 Personal history of nicotine dependence; Z98.42 Cataract extraction status, left eye
CPT/HCPCS: 66984; J0697; J2250; J3010; V2632

== ENCOUNTER → 2024-02-01 | Outpatient (CLI) | payer MEDICARE ==
[~2024-02-01] MED LIST changes: -MIDAZOLAM INJ 2MG/2ML VIAL As Ordered ONE; +NORCO, ANEXSIA 5/325MG TABLET (HYDROcodone/ACETAMINOPHEN) As Ordered ONE; -PHENYLEPHRINE 10% OPHTH SOL 5ML OD PRN; +TRIAMCINOLONE ACETONIDE SUSP 40MG/ML 1ML VIAL As Ordered ONE; +diazePAM 5MG TABLET As Ordered ONE; -fentaNYL 100 MCG/2 ML INJECTION As Ordered ONE
== END ==
LOC: M PAIN 16:30
PROVIDERS: ATTEND Anesthesiology
DX: M79.12 Myalgia of auxiliary muscles, head and neck (principal); M54.2 Cervicalgia; G89.29 Other chronic pain; I11.0 Hypertensive heart disease with heart failure; I50.9 Heart failure, unspecified; I48.0 Paroxysmal atrial fibrillation; E03.9 Hypothyroidism, unspecified; J45.20 Mild intermittent asthma, uncomplicated; E11.9 Type 2 diabetes mellitus without complications; H91.93 Unspecified hearing loss, bilateral; Z97.4 Presence of external hearing-aid; Z87.891 Personal history of nicotine dependence; Z79.890 Hormone replacement therapy; Z79.01 Long term (current) use of anticoagulants; Z79.899 Other long term (current) drug therapy; Z88.0 Allergy status to penicillin; Z88.8 Allergy status to other drugs, medicaments and biological substances; Z91.040 Latex allergy status
CPT/HCPCS: 20553; J0665; J3301

== ENCOUNTER → 2024-02-06 | Outpatient (CLI) | payer MEDICARE ==
[~2024-02-06] MED LIST changes: -LIDO1CRE2 TOP; +LIDO4CRE12 TOP; -NORCO, ANEXSIA 5/325MG TABLET (HYDROcodone/ACETAMINOPHEN) As Ordered ONE; -TRIAMCINOLONE ACETONIDE SUSP 40MG/ML 1ML VIAL As Ordered ONE; -diazePAM 5MG TABLET As Ordered ONE
[2024-02-06 09:46] LABS: ALBUMIN 3.2 G/DL (3.2-5.2); ALKALINE PHOSPHATASE 169 U/L (35-104); ALT/SGPT 16 U/L (7.0-40); AST/SGOT 10 U/L (<34); BILIRUBIN,TOTAL 0.4 MG/DL (0.3-1.2); BLOOD UREA NITROGEN 19 MG/DL (9-23); CALCIUM LEVEL 9.4 MG/DL (8.3-10.6); CARBON DIOXIDE LEVEL 35 MMOL/L (20-31); CHLORIDE LEVEL 101 MMOL/L (98-107); CHOLESTEROL LEVEL 146 MG/DL (<200); CHOLESTEROL RISK RATIO 2.99 (<5); CREATININE FOR GFR 0.97 MG/DL (0.55-1.30); GLOMERULAR FILTRATION RATE > 60.0 (>45); GLUCOSE, FASTING 85 MG/DL (74-106); HDL CHOLESTEROL 48.8 MG/DL (>40); LDL CHOLESTEROL 85.2 MG/DL (<100); NON-HDL-C 97.2 MG/DL; POTASSIUM SERUM 4.1 MMOL/L (3.5-5.1); SODIUM LEVEL 139 MMOL/L (136-145); THYROID STIMULATING HORMONE 0.571 uIU/ML (0.55-4.78); TOTAL PROTEIN 6.1 G/DL (5.7-8.2); TRIGLYCERIDES LEVEL 60 MG/DL (<150)
== END ==
LOC: M LAB 08:37
PROVIDERS: ATTEND Internal Medicine Cardiovascular Disease
DX: E03.9 Hypothyroidism, unspecified (principal); I12.9 Hypertensive chronic kidney disease with stage 1 through stage 4 chronic kidney disease, or unspecified chronic kidney disease; N18.9 Chronic kidney disease, unspecified; E87.6 Hypokalemia

== ENCOUNTER → 2024-02-07 | Outpatient (CLI) | payer MEDICARE | LOC: M WHC 13:13 | PROVIDERS: ATTEND Student in an Organized Health Care Education/Training Program | DX: Z12.31 Encounter for screening mammogram for malignant neoplasm of breast (principal) ==

== ENCOUNTER → 2024-03-18 | Outpatient (CLI) | payer MEDICARE ==
[~2024-03-18] MED LIST changes: +PRED20TA PO
== END ==
LOC: M PLAIMG 11:43
PROVIDERS: ATTEND Student in an Organized Health Care Education/Training Program
DX: S23.9XXD Sprain of unspecified parts of thorax, subsequent encounter (principal); X58.XXXD Exposure to other specified factors, subsequent encounter; Y92.9 Unspecified place or not applicable; Y93.9 Activity, unspecified; Y99.9 Unspecified external cause status

== ENCOUNTER 2024-04-03 03:49 | Emergency (ER) | payer MEDICARE ==
[~2024-04-03] VITALS: Ht 165.1 cm; Wt 88.6 kg
[~2024-04-03 03:49] MED LIST changes: -PRED20TA PO
[2024-04-03 04:26] LABS: BASO % 0.3 % (0.0-1.0); EOS % 0.6 % (0.0-3.0); HEMATOCRIT 39.8 % (36.0-47.0); HEMOGLOBIN 13.3 g/dl (12.0-15.5); LYMPH % 13.7 % (24.0-44.0); MEAN CORPUSCULAR HEMOGLOBIN 31.4 pg (27.0-33.0); MEAN CORPUSCULAR HGB CONC 33.4 g/dl (32.0-36.5); MEAN CORPUSCULAR VOLUME 93.9 fl (80.0-96.0); MONO # 0.8 10^3/uL (0.0-0.8); MONO % 10.7 % (2.0-8.0); NEUTROPHILS # 5.3 10^3/uL (1.5-8.5); NEUTROPHILS % 74.6 % (36.0-66.0); PLATELET COUNT, AUTOMATED 175 10^3/uL (150-450); RED BLOOD COUNT 4.24 10^6/uL (4.00-5.40); VENOUS BASE EXCESS 6.3 (-2.0-2.0); VENOUS HCO3 31.5 MMOL/L (23.0-27.0); VENOUS O2 SATURATION 88.5 % (60.0-80.0); VENOUS PARTIAL PRESSURE CO2 47.2 mmHg (38.0-50.0); VENOUS PARTIAL PRESSURE O2 55.1 mmHg (30.0-50.0); VENOUS PH 7.442 UNITS (7.330-7.430); VENOUS STANDARD HCO3 29.9 MMOL/L; VENOUS TOTAL CO2 32.9 MMOL/L (24.0-28.0); WHITE BLOOD COUNT 7.1 10^3/uL (4.0-10.0)
[2024-04-03] MEDS ORDERED: IPRATROPIUM 0.5MG/ALBUTEROL 2.5MG INH SOL UD 3ML (DUONEB) NEB SCH (04:35)
[2024-04-03] MEDS: ONDANSETRON 4MG 2ML VIAL IV PRN (04:51)
[2024-04-03] MEDS: COMBIVENT RESPIMAT 100-20MCG INHALER 4GM INH ONE (05:05)
[2024-04-03 05:41] LABS: CK-MB VALUE MASS < 1.0 NG/ML (<3.6)
[2024-04-03 05:43] LABS: ALBUMIN 3.3 G/DL (3.2-5.2); ALKALINE PHOSPHATASE 168 U/L (35-104); ALT/SGPT 15 U/L (7.0-40); AST/SGOT 19 U/L (<34); BILIRUBIN,DIRECT 0.1 MG/DL (<0.4); BILIRUBIN,TOTAL 0.4 MG/DL (0.3-1.2); BLOOD UREA NITROGEN 13 MG/DL (9-23); CALCIUM LEVEL 9.3 MG/DL (8.3-10.6); CARBON DIOXIDE LEVEL 34 MMOL/L (20-31); CHLORIDE LEVEL 101 MMOL/L (98-107); CPK CREATINE PHOSPHOKINASE 53 U/L (34-145); CREATININE FOR GFR 0.98 MG/DL (0.55-1.30); GLOMERULAR FILTRATION RATE > 60.0 (>45); GLUCOSE, FASTING 117 MG/DL (74-106); MB/CK RELATIVE INDEX 1.88 (< OR =4); POTASSIUM SERUM 3.7 MMOL/L (3.5-5.1); SODIUM LEVEL 142 MMOL/L (136-145); TOTAL PROTEIN 6.1 G/DL (5.7-8.2)
[2024-04-03 06:35] VITALS: TEMP 97.2
[2024-04-03] MEDS ORDERED: PRED20TA PO (06:41)
[2024-04-03] MEDS ORDERED: ONDA-282 PO (06:41)
[2024-04-03 07:01] VITALS: BP 149/64; O2SAT 92
== END 2024-04-03 07:10 | disposition home or self-care (01) ==
LOC: M ED 03:49 → EDBD 03:49 → M ED 07:10
DX: U07.1 COVID-19 (principal); I45.81 Long QT syndrome; I48.91 Unspecified atrial fibrillation; I10 Essential (primary) hypertension; J44.9 Chronic obstructive pulmonary disease, unspecified; F17.210 Nicotine dependence, cigarettes, uncomplicated; Z88.0 Allergy status to penicillin; Z88.1 Allergy status to other antibiotic agents; Z88.8 Allergy status to other drugs, medicaments and biological substances; Z79.1 Long term (current) use of non-steroidal anti-inflammatories (NSAID); Z79.51 Long term (current) use of inhaled steroids; Z79.01 Long term (current) use of anticoagulants; Z79.52 Long term (current) use of systemic steroids; Z79.899 Other long term (current) drug therapy
CPT/HCPCS: 71045; 80048; 80076; 82550; 82553; 82803; 83605; 83880; 84484; 85025; 85379; 87040; 93005; 93041; 94640; 94760; 96374; 99285; J2405

== ENCOUNTER → 2024-04-08 | Outpatient (CLI) | payer MEDICARE ==
[~2024-04-08] MED LIST changes: +PRED20TA PO
[2024-04-08 16:56] LABS: BASO % 0.1 % (0.0-1.0); EOS # 0.1 10^3/uL (0.0-0.5); EOS % 1.2 % (0.0-3.0); HEMATOCRIT 44.9 % (36.0-47.0); HEMOGLOBIN 14.8 g/dl (12.0-15.5); LYMPH # 2.3 10^3/uL (1.5-5.0); MEAN CORPUSCULAR VOLUME 93.9 fl (80.0-96.0); MONO # 0.6 10^3/uL (0.0-0.8); MONO % 6.2 % (2.0-8.0); NEUTROPHILS # 6.5 10^3/uL (1.5-8.5); NEUTROPHILS % 67.9 % (36.0-66.0); PLATELET COUNT, AUTOMATED 244 10^3/uL (150-450); RED BLOOD COUNT 4.78 10^6/uL (4.00-5.40); WHITE BLOOD COUNT 9.5 10^3/uL (4.0-10.0)
[2024-04-08 17:41] LABS: PROCALCITONIN <0.04 ng/ml
[2024-04-08 17:42] LABS: ALBUMIN 3.5 G/DL (3.2-5.2); ALKALINE PHOSPHATASE 166 U/L (35-104); ALT/SGPT 35 U/L (7.0-40); AST/SGOT 33 U/L (<34); BILIRUBIN,TOTAL 0.4 MG/DL (0.3-1.2); BLOOD UREA NITROGEN 19 MG/DL (9-23); CALCIUM LEVEL 9.4 MG/DL (8.3-10.6); CARBON DIOXIDE LEVEL > 40.0 MMOL/L (20-31); CHLORIDE LEVEL 93 MMOL/L (98-107); CREATININE FOR GFR 0.92 MG/DL (0.55-1.30); GLOMERULAR FILTRATION RATE > 60.0 (>45); GLUCOSE, FASTING 84 MG/DL (74-106); POTASSIUM SERUM 3.6 MMOL/L (3.5-5.1); SODIUM LEVEL 139 MMOL/L (136-145)
== END ==
LOC: M LAB 16:16
PROVIDERS: ATTEND Physician Assistant Medical
DX: U07.1 COVID-19 (principal); Z79.899 Other long term (current) drug therapy

== ENCOUNTER → 2024-04-21 | Outpatient (CLI) | payer MEDICARE | LOC: M PAIN 16:30 | PROVIDERS: ATTEND Nurse Practitioner Family | DX: M79.18 Myalgia, other site (principal); G89.29 Other chronic pain; M54.2 Cervicalgia; Z87.891 Personal history of nicotine dependence; Z88.0 Allergy status to penicillin; Z88.8 Allergy status to other drugs, medicaments and biological substances; Z91.040 Latex allergy status ==

== ENCOUNTER → 2024-05-29 | Outpatient (CLI) | payer MEDICARE | LOC: M PLAIMG 15:40 | PROVIDERS: ATTEND Physician Assistant Medical | DX: J40 Bronchitis, not specified as acute or chronic (principal) ==

== ENCOUNTER → 2024-10-07 | Outpatient (CLI) | payer MEDICARE | LOC: M PLAIMG 15:07 | DX: M79.644 Pain in right finger(s) (principal) ==

== ENCOUNTER → 2024-10-09 | Outpatient (REF) | payer MEDICARE | LOC: M SFHCPLAZ 10:26 | DX: Z53.9 Procedure and treatment not carried out, unspecified reason (principal) ==

== ENCOUNTER → 2024-10-10 | Outpatient (REF) | payer MEDICARE | LOC: M SFHCPLAZ 12:41 | PROVIDERS: ATTEND Family Medicine | DX: Z53.9 Procedure and treatment not carried out, unspecified reason (principal) ==

== ENCOUNTER → 2024-10-16 | Outpatient (CLI) | payer MEDICARE | LOC: M RAD 06:53 | PROVIDERS: ATTEND Student in an Organized Health Care Education/Training Program | DX: K43.9 Ventral hernia without obstruction or gangrene (principal) ==

== ENCOUNTER 2024-12-22 12:00 | Outpatient (RCR) | payer MEDICARE ==
[~2024-12-22 12:00] MED LIST changes: -ACE65ERTAB PO; +ACET-1593 PO
== END 2024-12-30 ==
LOC: M PT 12:00
PROVIDERS: ATTEND Pain Medicine Interventional Pain Medicine
DX: M47.812 Spondylosis without myelopathy or radiculopathy, cervical region (principal); M54.2 Cervicalgia

== ENCOUNTER 2025-01-06 09:44 | Outpatient (RCR) | payer MEDICARE | END 2025-01-30 | LOC: M PT 09:44 | PROVIDERS: ATTEND Pain Medicine Interventional Pain Medicine | DX: M47.812 Spondylosis without myelopathy or radiculopathy, cervical region (principal); M54.2 Cervicalgia ==

== ENCOUNTER → 2025-01-09 | Outpatient (REF) | payer MEDICARE | LOC: M SFHCPLAZ 15:04 | PROVIDERS: ATTEND Family Medicine | DX: Z53.9 Procedure and treatment not carried out, unspecified reason (principal) ==

== ENCOUNTER → 2025-02-13 | Outpatient (CLI) | payer MEDICARE ==
[2025-02-13 11:07] LABS: BASO # 0.0 10^3/uL (0.0-0.2); BASO % 0.3 % (0.0-1.0); EOS # 0.2 10^3/uL (0.0-0.5); EOS % 3.0 % (0.0-3.0); LYMPH # 1.4 10^3/uL (1.5-5.0); LYMPH % 22.4 % (24.0-44.0); MONO # 0.6 10^3/uL (0.0-0.8); MONO % 9.7 % (2.0-8.0); NEUTROPHILS # 3.9 10^3/uL (1.5-8.5); NEUTROPHILS % 64.3 % (36.0-66.0); PLATELET COUNT, AUTOMATED 227 10^3/uL (150-450)
[2025-02-13 11:28] LABS: ESTIMATED AVERAGE GLUCOSE 123.0 MG/DL (60-110)
[2025-02-13 11:35] LABS: FREE T4 1.31 NG/DL (0.89-1.76)
[2025-02-13 11:36] LABS: ALT/SGPT 22 U/L (7.0-40); AST/SGOT 24 U/L (<34); CALCIUM LEVEL 9.3 MG/DL (8.3-10.6); CARBON DIOXIDE LEVEL 34 MMOL/L (20-31); CHLORIDE LEVEL 101 MMOL/L (98-107); CHOLESTEROL LEVEL 168 MG/DL (<200); CHOLESTEROL RISK RATIO 3.24 (<5); CREATININE FOR GFR 0.97 MG/DL (0.55-1.30); GLOMERULAR FILTRATION RATE 64.5 (>45); LDL CHOLESTEROL 97.1 MG/DL (<100); MAGNESIUM LEVEL 2.1 MG/DL (1.8-2.4); NON-HDL-C 116.3 MG/DL; POTASSIUM SERUM 4.0 MMOL/L (3.5-5.1); SODIUM LEVEL 143 MMOL/L (136-145); TRIGLYCERIDES LEVEL 96 MG/DL (<150); VITAMIN B12 LEVEL 586 PG/ML (211-911)
== END ==
LOC: M PLALAB 08:27
DX: I11.0 Hypertensive heart disease with heart failure (principal); E03.9 Hypothyroidism, unspecified; K21.9 Gastro-esophageal reflux disease without esophagitis; Z13.1 Encounter for screening for diabetes mellitus